=== PATIENT | male | born 1935 | race Caucasian/White ===

== ENCOUNTER 2017-07-24 11:08 | Inpatient (IN) | payer MEDICARE, OTHER ==
[2017-07-24] MEDS ORDERED: Heparin 10,000 UNITS/1 ML VIAL ONE (11:40)
[2017-07-24] MEDS ORDERED: DOPamine 400 MG/D5W 250 ML 250 ML ONE (11:40)
[2017-07-24] MEDS ORDERED: Ondansetron HCl/PF 4 MG/2 ML Vial ONE (11:53)
[2017-07-24] MEDS ORDERED: Verapamil 5 MG/2 ML VIAL ONE (11:58)
[2017-07-24] MEDS ORDERED: Heparin 1000 UNIT/NS 500ML(OR) 500 ML ONE (11:58)
[2017-07-24] MEDS ORDERED: Midazolam HCl 2 mg/2 ml Vial ONE (12:05)
[2017-07-24] MEDS ORDERED: Fentanyl 100 MCG/2 ML VIAL ONE (12:06)
[2017-07-24] MEDS ORDERED: Aggrastat 12.5 MG/250 ML 250 ML ONE (12:11)
[2017-07-24] MEDS ORDERED: Acetaminophen/Codeine 30-300mg Tablet PO PRN (12:19)
[2017-07-24] MEDS ORDERED: Aggrastat 12.5 MG/250 ML 250 ML IVPB SCH (12:30)
[2017-07-24] MEDS ORDERED: Iopamidol 370 76% 100 ML VIAL ONE (13:04)
[2017-07-24] MEDS ORDERED: Iopamidol 370 76% 50 ML VIAL FS ONE (13:04)
--- NOTE | 2017-07-24 14:57 | ADD-PRG ---
ADDENDUM: DATE OF SERVICE: 07/24/2017 Mr. Ho was brought urgently for acute myocardial infarction. The patient was markedly bradycardic with heart rate in the 20s. He was (00:27) in sterile fas hion. Initially I placed a temporary pacemaker. While placing a temporary pacemaker, he went in el tricular fibrillation. He underwent successful cardioversion x1 and placed on IV amiodarone. He also was found to have previous stent placed at the ostium of the right coronary artery which was occluded. He underwent successful stent placement with a 4.0 x 15 mm Synergy stent. This was placed a few millimeters outside of the ostium. There was residual stenosis noted at the ostium due to ___ __ (01:22). A 4.0 x 12 mm balloon was then placed and it was very difficult with placement to the os tium. Multiple times there were inflations with advancement of the balloon on inflation. There was near loss of the wire. After appropriate placement and inflation, there did appear to be appropriate inflation present at the ostium. The patient was hypotensive during the procedure. He began to wre tch and as I was taking out the balloon, there was loss of wire. Had difficulty reengaging due to th e stent being out of the ostium. There was RAVINDER-3 flow present. There was cut off noted in the dist al RPL and PDA likely from thrombus. Patient's blood pressure and heart rate was stable and was amaya sferred to ICU in guarded condition. He was placed on Aggrastat.
[2017-07-24] MEDS: Morphine 4 MG/ML VIAL SLOW IVP PRN (18:12)
[2017-07-24] MEDS: Sodium Chloride 0.9% 1,000 ML IV SCH ×2 (18:50→20:00)
[2017-07-24] MEDS: Amiodarone In Dextrose 200 ML IVPB SCH (18:59)
[2017-07-24] MEDS ORDERED: Nitroglycerin 50 MG/250 ML BOT 250 ML IVPB SCH (21:30)
[2017-07-24] MEDS: Atorvastatin Calcium 40 MG TAB PO SCH (21:32)
[2017-07-25] MEDS: Amiodarone In Dextrose 200 ML IVPB SCH (03:16)
[2017-07-25 04:47] LABS: #Lymphocytes 1.9 thou/uL (1.20-3.40); %Eosinophils 0.2 % (0.0-10.0); %Lymphocytes 15.5 % (21.0-51.0); %Monocytes 8.4 % (0.0-10.0); Hematocrit 28.1 % (42.0-52.0); Mean Platelet Volume 7.7 fL (7.4-10.4); Red Blood Cell (RBC) Count 3.15 mill/uL (4.70-6.10); White Blood Cell (WBC) Count 11.9 thou/uL (4.8-10.8)
[2017-07-25] MEDS: Morphine 4 MG/ML VIAL SLOW IVP PRN ×2 (04:53→10:10)
[2017-07-25 05:05] LABS: ALT (SGPT) 16 U/L (8-55); AST (SGOT) 64 U/L (5-34); Alkaline Phosphatase 47 U/L (40-150); Anion Gap 9 mmol/L (10-20); BUN (Urea Nitrogen) 35 mg/dL (8.4-25.7); Bilirubin, Total 0.3 mg/dL (0.2-1.2); Calc. Creatinine Clearance 107 mL/min (70-130); Calcium 7.8 mg/dL (7.8-10.44); Carbon Dioxide 22 mmol/L (23-31); Chloride 104 mmol/L (98-107); Estimated GFR-MDRD 70; Globulin 2.1 g/dL (2.4-3.5)
[2017-07-25] MEDS: Clopidogrel Bisulfate 75 MG TAB PO SCH (08:35)
[2017-07-25] MEDS: Lisinopril 20 MG TAB PO SCH ×2 (09:09→20:18)
[2017-07-25] MEDS: Ubidecarenone 50 MG CAP PO SCH (09:09)
[2017-07-25] MEDS: Ezetimibe 10 MG TAB PO SCH (09:09)
[2017-07-25 09:44] LABS: Troponin I 16.411 ng/mL (< 0.028)
[2017-07-25] MEDS ORDERED: HYDROcodone/Acetaminophen 5/325 mg Tablet PO PRN (11:30)
[2017-07-25] MEDS ORDERED: Diazepam 5 MG TAB PO PRN (11:30)
--- NOTE | 2017-07-25 11:37 | CON ---
DATE OF CONSULTATION: 07/25/2017 SERVICE: Pulmonary Medicine. REASON FOR CONSULTATION: ICU patient. HISTORY OF PRESENT ILLNESS: Patient is an 82-year-old white male with past medical history significa nt for previous RAW HIDE TRIMMER to the RCA. He started having intermittent discomfort. Ultimately, he presented to the Emergency Department and was discovered to have a pulse in the 20s. EKG was consistent with ST elevation [place]. Ultimately, he was taken down to the laboratory miller. Inclusion of the RCA was identified . A stent was placed. Because of the bradycardia, a transcutaneous pacemaker was placed. After cap ture was obtained, he briefly went into ventricular fibrillation. He was cardioverted and went back into sinus rhythm. Since the stent was placed, he recovered his chipewwa rhythm. The transvenous pace maker was subsequently removed. The sheath has just been removed. He currently denies any fevers, c hills, nausea, vomiting or chest discomfort. PAST MEDICAL HISTORY: 1. Dyslipidemia. 2. Hypertension. 3. Coronary artery disease. 4. Gastroesophageal reflux disease. 5. Peripheral vascular disease. PAST SURGICAL HISTORY: None. SOCIAL HISTORY: Negative for current alcohol, tobacco or illicit drug use. He has no exposure to ch emicals, asbestosis or tuberculosis. FAMILY HISTORY: Noncontributory. ALLERGIES: SULFA. MEDICATIONS: List of his home medications as well inpatient medications was reviewed. No specific u pdates were made at this time. REVIEW OF SYSTEMS: General, head, ears, eyes, nose, throat, cardiovascular, respiratory, GI, , mus culoskeletal, neurologic and skin is negative except as mentioned in the HPI. PHYSICAL EXAMINATION: VITAL SIGNS: Afebrile, pulse 50, blood pressure 136/44, respirations 15, saturation 98% on room air. GENERAL: Patient is awake, alert, in no apparent distress. LUNGS: Excellent air entry. There is no prolonged expiratory phase, wheezing, rhonchi or crackles. HEART: Normal rate, regular. ABDOMEN: Soft, nontender, and nondistended. Bowel sounds are positive. MUSCULOSKELETAL: No cyanosis or clubbing. No pitting in the bilateral lower extremities. NEUROLOGIC: Grossly nonfocal. LABORATORY DATA: WBC 11.9, hemoglobin 9.5, platelets 208,000. Sodium 131. Basic metabolic profile is otherwise unremarkable. Troponin has increased to 16.44. Liver function studies are essentially unremarkable. Creatinine 1.02. AST is barely elevated at 64. ASSESSMENT: 1. ST elevation myocardial infarction. 2. Status post percutaneous coronary intervention to the RCA. 3. Sinus bradycardia. 4. Transient ventricular tachycardia. 5. Coronary artery disease. PLAN: The patient will remain in the ICU for next 24 hours. I will provide him with Dalbo and Ativa n on an as needed basis. Morphine will be discontinued. Pulmonary or Critical Care will continue to follow while the patient remains in the ICU.
[2017-07-25 12:58] LABS: Critical Call CKMBM RESULT DECREASING; Critical Call Chem Troponin I RESULT DECREASING; Troponin I 14.216 ng/mL (< 0.028)
[2017-07-25] MEDS: Nisoldipine 8.5 MG TAB PO SCH (13:44)
[2017-07-25 13:57] VITALS: BMI 20.9
[2017-07-25] MEDS: Atorvastatin Calcium 40 MG TAB PO SCH (20:18)
[2017-07-25] MEDS: Rosuvastatin 10 MG TAB PO SCH (20:18)
[2017-07-26 05:08] LABS: #Eosinphils 0.1 thou/uL (0.0-0.7); #Lymphocytes 1.5 thou/uL (1.20-3.40); #Neutrophils 8.5 thou/uL (1.40-6.50); %Basophils 0.1 % (0.0-1.0); %Eosinophils 0.5 % (0.0-10.0); %Lymphocytes 13.3 % (21.0-51.0); %Monocytes 8.7 % (0.0-10.0); Hematocrit 27.6 % (42.0-52.0); Mean Platelet Volume 7.7 fL (7.4-10.4); Red Blood Cell (RBC) Count 3.12 mill/uL (4.70-6.10); White Blood Cell (WBC) Count 10.9 thou/uL (4.8-10.8)
[2017-07-26 05:13] LABS: Anion Gap 9 mmol/L (10-20); BUN (Urea Nitrogen) 25 mg/dL (8.4-25.7); Calc. Creatinine Clearance 44 mL/min (70-130); Calcium 8.4 mg/dL (7.8-10.44); Carbon Dioxide 23 mmol/L (23-31); Chloride 106 mmol/L (98-107); Estimated GFR-MDRD 63
[2017-07-26] MEDS: Clopidogrel Bisulfate 75 MG TAB PO SCH (07:59)
[2017-07-26] MEDS: Ubidecarenone 50 MG CAP PO SCH (07:59)
[2017-07-26] MEDS: Ezetimibe 10 MG TAB PO SCH (07:59)
[2017-07-26] MEDS: Lisinopril 20 MG TAB PO SCH ×2 (07:59→21:08)
[2017-07-26] MEDS: Nisoldipine 8.5 MG TAB PO SCH (09:29)
--- NOTE | 2017-07-26 11:42 | PRG ---
DATE OF SERVICE: 07/26/2017 SERVICE: Pulmonary Medicine. INTERVAL HISTORY: The patient is doing fine from a respiratory standpoint. He denies any current fe vers, chills, nausea, vomiting or diarrhea. He is breathing comfortably. He got up and walked with physical therapy today. He has been weaned down to room air. He had a little bit of chest discomfor t when he was sitting upright. But when he got up and started moving with physical therapy, that dis comfort went away. Otherwise, there has been no interval change to his condition. PHYSICAL EXAMINATION: VITAL SIGNS: Afebrile, pulse 54, blood pressure 123/49, respirations 22, saturation 98% on room air. GENERAL: The patient is awake, alert, in no apparent distress. LUNGS: Excellent air entry with no prolonged expiratory phase or wheezing. HEART: Normal rate, regular. ABDOMEN: Soft, nontender, nondistended. Bowel sounds are positive. MUSCULOSKELETAL: No cyanosis or clubbing. There is trace pitting in the bilateral lower extremities . NEUROLOGIC: Grossly nonfocal. LABORATORY DATA: WBC 10.9, hemoglobin 9.6, and platelets 188,000. Basic metabolic profile is comple tely unremarkable. Troponin is trending downward to 14.2. IMAGING: Echocardiogram demonstrates normal ejection fraction of 60%-65%. Moderate aortic stenosis, aortic regurgitation, and moderate to severe TR are identified. Otherwise, there are some trivial a bnormalities. ASSESSMENT: 1. ST elevation myocardial infarction. 2. Status post percutaneous coronary intervention to the RCA. 3. Coronary artery disease with needed intervention and additional artery later. 4. Sinus bradycardia. 5. Transient ventricular tachycardia, resolved. PLAN: At this point, the patient remains stable from a respiratory standpoint. He did not have any significant events on telemetry. As such, he can be transitioned to the floor. Epperson catheter will be removed today. When he arrives on the floor, he will have no further requirements for inpatient P ulmonary or Critical Care opinion and we will sign off. Please call with additional questions or con cerns.
[2017-07-26] MEDS: Rosuvastatin 10 MG TAB PO SCH (21:09)
[2017-07-27 06:27] LABS: #Eosinphils 0.2 thou/uL (0.0-0.7); #Lymphocytes 1.6 thou/uL (1.20-3.40); #Monocytes 0.5 thou/uL (0.11-0.59); #Neutrophils 4.7 thou/uL (1.40-6.50); %Basophils 0.1 % (0.0-1.0); %Eosinophils 3.3 % (0.0-10.0); %Lymphocytes 22.5 % (21.0-51.0); %Monocytes 7.6 % (0.0-10.0); Hematocrit 25.8 % (42.0-52.0); Mean Platelet Volume 7.4 fL (7.4-10.4); Red Blood Cell (RBC) Count 2.89 mill/uL (4.70-6.10); White Blood Cell (WBC) Count 7.1 thou/uL (4.8-10.8)
[2017-07-27 06:51] LABS: Anion Gap 11 mmol/L (10-20); BUN (Urea Nitrogen) 19 mg/dL (8.4-25.7); Calc. Creatinine Clearance 45 mL/min (70-130); Calcium 8.5 mg/dL (7.8-10.44); Carbon Dioxide 24 mmol/L (23-31); Chloride 103 mmol/L (98-107); Estimated GFR-MDRD 63; Iron 20 ug/dL (65-175)
[2017-07-27] MEDS: Ezetimibe 10 MG TAB PO SCH (09:08)
[2017-07-27] MEDS: Clopidogrel Bisulfate 75 MG TAB PO SCH (09:08)
[2017-07-27] MEDS: Lisinopril 20 MG TAB PO SCH ×2 (09:09→21:02)
[2017-07-27] MEDS: Ubidecarenone 50 MG CAP PO SCH (09:10)
[2017-07-27] MEDS: Nisoldipine 8.5 MG TAB PO SCH (09:16)
[2017-07-27] MEDS: Milk Of Magnesia 30 ML UDCUP PO PRN (17:12)
[2017-07-27] MEDS ORDERED: Dronedarone HCl 400 MG TAB PO SCH (18:45)
[2017-07-27] MEDS: Enoxaparin Sodium 60 MG/0.6 ML SYRINGE SC SCH (21:02)
[2017-07-27] MEDS: Rosuvastatin 10 MG TAB PO SCH (21:03)
[2017-07-28 06:01] LABS: #Eosinphils 0.3 thou/uL (0.0-0.7); #Lymphocytes 1.6 thou/uL (1.20-3.40); #Monocytes 0.5 thou/uL (0.11-0.59); #Neutrophils 4.2 thou/uL (1.40-6.50); %Basophils 0.5 % (0.0-1.0); %Eosinophils 4.9 % (0.0-10.0); %Lymphocytes 23.5 % (21.0-51.0); %Monocytes 8.2 % (0.0-10.0); Hematocrit 27.2 % (42.0-52.0); Mean Platelet Volume 7.5 fL (7.4-10.4); Red Blood Cell (RBC) Count 3.07 mill/uL (4.70-6.10); White Blood Cell (WBC) Count 6.7 thou/uL (4.8-10.8)
[2017-07-28 06:11] LABS: Anion Gap 11 mmol/L (10-20); BUN (Urea Nitrogen) 18 mg/dL (8.4-25.7); Calc. Creatinine Clearance 40 mL/min (70-130); Calcium 8.2 mg/dL (7.8-10.44); Carbon Dioxide 25 mmol/L (23-31); Chloride 101 mmol/L (98-107); Estimated GFR-MDRD 56
[2017-07-28] MEDS: Ubidecarenone 50 MG CAP PO SCH (08:47)
[2017-07-28] MEDS: Enoxaparin Sodium 60 MG/0.6 ML SYRINGE SC SCH ×2 (08:47→20:09)
[2017-07-28] MEDS: Dronedarone HCl 400 MG TAB PO SCH ×2 (08:47→17:05)
[2017-07-28] MEDS: Ezetimibe 10 MG TAB PO SCH (08:47)
[2017-07-28] MEDS: Lisinopril 20 MG TAB PO SCH ×2 (08:47→20:08)
[2017-07-28] MEDS: Clopidogrel Bisulfate 75 MG TAB PO SCH (08:47)
[2017-07-28] MEDS: Nisoldipine 8.5 MG TAB PO SCH (08:48)
[2017-07-28] MEDS: Milk Of Magnesia 30 ML UDCUP PO PRN (12:48)
[2017-07-28] MEDS ORDERED: Bisacodyl 5 MG TAB PO PRN (13:24)
[2017-07-28] MEDS ORDERED: Communication Order-Pharmacy FS SCH (18:45)
[2017-07-28] MEDS: Rosuvastatin 10 MG TAB PO SCH (20:08)
[2017-07-29 05:32] LABS: Anion Gap 12 mmol/L (10-20); BUN (Urea Nitrogen) 15 mg/dL (8.4-25.7); Calc. Creatinine Clearance 37 mL/min (70-130); Calcium 8.5 mg/dL (7.8-10.44); Carbon Dioxide 24 mmol/L (23-31); Chloride 101 mmol/L (98-107); Estimated GFR-MDRD 50
[2017-07-29 05:55] LABS: Band 1 % (5-11); Hematocrit 27.9 % (42.0-52.0); Mean Platelet Volume 7.7 fL (7.4-10.4); Neutrophil 58 % (42-75); Red Blood Cell (RBC) Count 3.03 mill/uL (4.70-6.10)
[2017-07-29] MEDS: Ezetimibe 10 MG TAB PO SCH (05:58)
[2017-07-29] MEDS: Ubidecarenone 50 MG CAP PO SCH (05:58)
[2017-07-29] MEDS: Clopidogrel Bisulfate 75 MG TAB PO SCH (05:58)
[2017-07-29] MEDS: Lisinopril 20 MG TAB PO SCH ×2 (05:59→21:27)
[2017-07-29] MEDS: Dronedarone HCl 400 MG TAB PO SCH ×2 (05:59→17:50)
[2017-07-29] MEDS ORDERED: Sodium Chloride 0.9% 1,000 ML IV SCH ×2 (06:00→09:08)
[2017-07-29] MEDS: Nisoldipine 8.5 MG TAB PO SCH (06:03)
[2017-07-29] MEDS ORDERED: Heparin 1000 UNIT/NS 500ML(OR) 500 ML ONE ×3 (06:23→07:50)
--- NOTE | 2017-07-29 06:51 | CCL ---
ADDENDUM TO ANGIOGRAM DATE OF SERVICE: 07/24/2017 Mr. Ho was brought urgently for acute myocardial infarction. The patient was markedly bradycardic with heart rate in the 20s. He was prepped and draped in steril e fashion. Initially I placed a temporary pacemaker. While placing a temporary pacemaker, he went i n ventricular fibrillation. He underwent successful cardioversion x1 and placed on IV amiodarone. He also was found to have previous stent placed at the ostium of the right coronary artery which was occluded. He underwent successful stent placement with a 4.0 x 15 mm Synergy stent. This was placed a few millimeters outside of the ostium. There was residual stenosis noted at the ostium due to enma cium. A 4.0 x 12 mm balloon was then placed and it was very difficult with placement to the ostium. Multiple times there were inflations with advancement of the balloon on inflation. There was near l oss of the wire. After appropriate placement and inflation, there did appear to be appropriate infla tion present at the ostium. The patient was hypotensive during the procedure. He began to wretch an d as I was taking out the balloon, there was loss of wire. Had difficulty reengaging due to the sten t being out of the ostium. There was RAVINDER-3 flow present. There was cut off noted in the distal RPL and PDA likely from thrombus. Patient's blood pressure and heart rate was stable and was transferre d to ICU in guarded condition. He was placed on Aggrastat. POS: [facility]
[2017-07-29] MEDS ORDERED: Midazolam HCl 2 mg/2 ml Vial ONE (07:14)
[2017-07-29] MEDS ORDERED: Heparin 10,000 UNITS/1 ML VIAL ONE ×2 (07:14→08:27)
[2017-07-29] MEDS ORDERED: Nitroglycerin 0.4 MG TAB 1 EACH SL PRN (09:06)
[2017-07-29] MEDS ORDERED: Morphine 4 MG/ML Carpuject SLOW IVP PRN (09:06)
[2017-07-29] MEDS ORDERED: Morphine 4 MG/ML VIAL SLOW IVP PRN ×2 (10:07→10:08)
--- NOTE | 2017-07-29 11:49 | CON ---
DATE OF CONSULTATION: 07/29/2017 REASON FOR CONSULTATION: Normocytic anemia. HISTORY OF PRESENT ILLNESS: Mr. Ho is a very pleasant 82-year-old male who was a dmitted through the emergency department for chest discomfort. He was diagnosed with a STEMI and und erwent stent placement. Routine labs on admission showed a normocytic normochromic anemia of 9.5. H is white count and differential were normal. Platelets were normal. He also has mild chronic kidney disease stage 3. The patient states he has no history of anemia. He denies any melena, hematochezi a or hematuria. He states his last colonoscopy was many years ago and he was told that he did not basilio ve to have a repeat colonoscopy. He also has a history esophageal dilation with EGD. Otherwise, a s ignificant coronary history. He denies any shortness of breath, dyspnea on exertion. He does fatigu e easily. PAST MEDICAL HISTORY: 1. Coronary artery disease. 2. Dyslipidemia. 3. Hypertension. 4. Peripheral vascular disease. 5. Gastroesophageal reflux. PAST SURGICAL HISTORY: Coronary artery stent placement. ALLERGIES: SULFA. HOME MEDICATIONS: 1. Ecotrin 325 daily. 2. Zetia 10 mg daily. 3. Fish oil 1000 mg daily. 4. Lisinopril/hydrochlorothiazide daily. 5. Sular 8.5 mg daily. 6. Protonix 40 mg daily. 7. Crestor 10 mg daily. FAMILY HISTORY: Noncontributory. SOCIAL HISTORY: He is , has 3 children, lives with his in [place]. No alcohol, tobacco or illicit drug use. REVIEW OF SYSTEMS: CONSTITUTIONAL: No fever, chills, night sweats, recent weight loss or gain. EYES: No blurred or double vision. ENT: No pain, hoarseness, sore throat, or dysphagia. CARDIOVASCULAR: No chest pain or palpitations. RESPIRATORY: No shortness of breath, dyspnea on exertion or orthopnea. GASTROINTESTINAL: No nausea, vomiting, diarrhea, constipation or abdominal pain. GENITOURINARY: Denies dysuria or hematuria. MUSCULOSKELETAL: Positive for hip pain. SKIN: No rash or pruritus. HEMATOLOGIC: No bleeding, bruising or clotting. NEUROLOGIC: Denies headaches, numbness, tingling, weakness, or seizure activity. PSYCHIATRIC: No anxiety or depression. PHYSICAL EXAMINATION: VITAL SIGNS: Temperature is 98.7, pulse is 70, respiratory rate 18, BP is 137/78. He is 95% on room air. GENERAL: Well-developed, well-nourished male in no acute distress. HEENT: Normocephalic, atraumatic. Pupils equal and reactive to light. CARDIOVASCULAR: Regular rate and rhythm. LUNGS: Clear. ABDOMEN: Soft, nontender. There is no organomegaly palpable. SKIN: No rash. HEMATOLOGICAL: No petechia or purpura. NEUROLOGICAL: Nonfocal. PSYCHIATRIC: The patient is alert, oriented and appropriate. PERTINENT LABORATORY AND X-RAYS: Current WBCs are 7.0, hemoglobin 9.4, hematocrit 27.9, platelet cou nt 216,000, 58% neutrophils, 24% lymphocytes, 4% monocytes. Sodium is 133, potassium 4.1, chloride 1 01, CO2 is 24, BUN is 15, creatinine 1.37, calcium 8.5. Iron is 20, TIBC is 231, total bilirubin 0.3 , AST 64, ALT 16, alkaline phosphatase is 47, CK-MB is 31, troponin is 4216. Serum total protein is 5.0. Albumin 2.9, globulin 2.1. B12 is 197, folate is 10.9. IMPRESSION: 1. Normocytic anemia. 2. B12 deficiency. 3. ST-segment elevation myocardial infarction. 4. Chronic kidney disease, stage 3. DISCUSSION: The patient has obvious B12 deficiency. We will begin subcutaneous injections today and continue for 7 days and then weekly. We will check a ferritin to be complete. I do think he should be on ferrous sulfate 325 mg daily. Would like to guaiac his stool, that can be done in the outpati ent setting. He will follow up with Dr. Crews in August. His who is a former nurse has agre ed to give him injections at home until that time. Thank you for the consult. We will be happy to follow him in the outpatient setting.
[2017-07-29] MEDS ORDERED: Acetaminophen/Codeine 30-300mg Tablet ONE (13:39)
[2017-07-29] MEDS ORDERED: Morphine 4 MG/ML VIAL ONE (15:20)
[2017-07-29] MEDS ORDERED: Iopamidol 370 76% 100 ML VIAL ONE ×2 (17:03)
[2017-07-29] MEDS: Rosuvastatin 10 MG TAB PO SCH (21:29)
[2017-07-30 05:14] LABS: #Eosinphils 0.3 thou/uL (0.0-0.7); #Lymphocytes 1.6 thou/uL (1.20-3.40); #Monocytes 0.7 thou/uL (0.11-0.59); #Neutrophils 3.3 thou/uL (1.40-6.50); %Basophils 0.2 % (0.0-1.0); %Eosinophils 4.9 % (0.0-10.0); %Lymphocytes 26.6 % (21.0-51.0); %Monocytes 12.3 % (0.0-10.0); Mean Platelet Volume 7.1 fL (7.4-10.4); Red Blood Cell (RBC) Count 2.78 mill/uL (4.70-6.10); White Blood Cell (WBC) Count 5.8 thou/uL (4.8-10.8)
[2017-07-30 05:28] LABS: ALT (SGPT) 14 U/L (8-55); AST (SGOT) 23 U/L (5-34); Alkaline Phosphatase 47 U/L (40-150); Anion Gap 10 mmol/L (10-20); BUN (Urea Nitrogen) 13 mg/dL (8.4-25.7); Bilirubin, Total 0.5 mg/dL (0.2-1.2); Calc. Creatinine Clearance 39 mL/min (70-130); Calcium 8.1 mg/dL (7.8-10.44); Carbon Dioxide 21 mmol/L (23-31); Chloride 104 mmol/L (98-107); Estimated GFR-MDRD 54; Globulin 2.3 g/dL (2.4-3.5); Protein, Total 5.2 g/dL (5.8-8.1)
[2017-07-30] MEDS ORDERED: Ferrous Sulfate 325 MG TAB PO SCH (08:00)
[2017-07-30] MEDS: Ubidecarenone 50 MG CAP PO SCH (08:20)
[2017-07-30] MEDS: Lisinopril 20 MG TAB PO SCH (08:20)
[2017-07-30] MEDS: Ezetimibe 10 MG TAB PO SCH (08:20)
[2017-07-30] MEDS: Clopidogrel Bisulfate 75 MG TAB PO SCH (08:20)
[2017-07-30] MEDS ORDERED: Cyanocobalamin 1000 MCG/ML VIAL SC SCH (09:00)
[2017-07-30] MEDS: Dronedarone HCl 400 MG TAB PO SCH (09:40)
[2017-07-30] MEDS: Nisoldipine 8.5 MG TAB PO SCH (09:44)
--- NOTE | 2017-07-30 11:13 | DIS ---
DISCHARGE DIAGNOSES: 1. Inferior ST-segment elevation myocardial infarction with bradycardia and temporary pacemaker placement with peak MB 39.0, peak troponin I of 16.411. 2. 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 3. Drug-eluting stents placement in the right coronary ostium with restenting 4 days later. 4. Drug-eluting stent placement in the circumflex in-stent restenosis. 5. History of drug-eluting stents in the proximal and mid RCA and proximal circumflex initially in 01/2011. 6. Paroxysmal atrial fibrillation during this admission with Multaq started, Xarelto will be started 3 days after discharge with recurrent atrial fibrillation, but in sinus rhythm at the time of discharge. 7. Sick sinus syndrome. 8. Hypercholesterolemia, under good control. 9. Hypertension. 10. Moderate aortic stenosis. 11. Moderate aortic insufficiency. 12. Status post bilateral carotid endarterectomy. 13. Anemia with mild vitamin B12 deficiency being followed by Hematology with discharge hemoglobin of 8.4, hematocrit 25.0. 14. Esophageal dilatation. DISCHARGE DISPOSITION: The patient is being discharged with a 30-day monitor to look for atrial fibrillation. His last episode of atrial fibrillation came on after an episode of junctional bradycardia with rate in the low 50s and then he developed atrial fibrillation. DISCHARGE MEDICATIONS: Aspirin 81 daily, Plavix 75 mg daily, Xarelto 20 mg daily will be started on 08/02/2017, Zetia 10 mg daily, fish oil 1000 mg daily, lisinopril 10 mg b.i.d., Sular 8.5 mg daily, Protonix 40 daily, Crestor 10 mg daily, CoQ10 100 at bedtime. DISCHARGE DISPOSITION: The patient will be seen in 5 weeks for followup. Certainly consideration may need to be given to a pacemaker placed in the future. HOSPITAL COURSE: Mr. Ho had 30 minutes of chest pain on 07/04/2017, . He denied any further episodes of discomfort until 2016. He called 911 and was brought to the emergency room here and found to have changes consistent with inferior STEMI. He was taken to the [facility] by Dr. Alas in my absence. The previous stent in the ostium of the right coronary was occluded. He underwent placement of a Synergy 4.0 x 15 mm stent in this area. He also was extremely bradycardic and had a temporary pacemaker placed which ultimately was removed the following day. 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 He was placed on IV amiodarone for a short period of time, then that was discontinued. It also was noted that his hemoglobin was 9.5 at the time of discharge. The iron and TIBC were both low as well as vitamin B12 being slightly low. He was placed on iron and vitamin B12 and is being followed by Hematology. Mr. Ho was also found to have a significant in-stent restenosis of the circumflex - obtuse marginal stents. It was felt that this should be addressed several days after his infarction. On 07/27/2017 he did go into atrial fibrillation which was a new arrhythmia for him. He has had longstanding significant sinus bradycardia, although he has been asymptomatic. He has not been on any beta blockers for that reason. With his atrial fibrillation he was placed on Lovenox 1 mg/kg b.i.d. He also was started on Multaq and approximately 3 hours after the first dose converted to sinus rhythm. He then underwent repeat catheterization on 07/29/2017. The decision was made to fully evaluate his aortic stenosis and he was found to have a mean gradient of 21 mm with an aortic valve area of 1.1 cm2. Ejection fraction was 55-60%. On aortic root injection he was found to have moderate aortic insufficiency. It was also noted that there was a significant lesion proximal to the stent in the right coronary artery. The decision was made to address this first and with engaging the ostium there was very significant pressure dampening. Proximal to the prior stents, Synergy 4.0 x 12 mm stent was positioned and deployed. This was postdilated with a 4.5 mm balloon. The lesion was reduced from 70 to 0%. Attention was then turned to the in-stent restenosis. In the circumflex there was a proximal 70% stenosis and a 90% stenosis in the first obtuse marginal. Synergy 2.5 x 38 mm stent was placed. There was post-dilatation with Emerge NC 2.5 mm balloon. Both lesions were reduced to essentially 0%. He also had been in atrial fibrillation at the time of his second catheterization having recurred during the night. This did appear to occur after he developed 10 seconds of junctional bradycardia. Later that day he converted back to sinus rhythm. He is being sent home with a 30-day monitor to evaluate the frequency of episodes and to monitor him for significant bradycardia. MTDD
[2017-07-30] MEDS ORDERED: Cyanocobalamin 1000 MCG/ML VIAL IM SCH ×2 (13:00→14:00)
[2017-07-30 14:22] VITALS: BP 118/56; TEMP 98.2
--- NOTE | 2017-07-30 16:23 | CCL ---
CARDIAC CATHETERIZATION REPORT: Date: 07/29/17 PROCEDURE: Left and right heart catheterization, selective arteriography, left ventriculography, aortic root injection, stent placement in the ostial right coronary artery, and stent placement in the proximal circumflex into the first obtuse marginal. INDICATION: Aortic stenosis and STEMI. DESCRIPTION OF PROCEDURE: The patient was brought to the cardiac microbiological lab technician and the right groin was prepped and draped in the usual fashion. 1% lidocaine was infiltrated. A 7 Egyptian sheath was placed into the right femoral vein, followed by a 6 Egyptian sheath in the right femoral artery. Heparin 3,000 units given. A Westfield-Subhash catheter was inserted and right heart pressures were obtained. A double lumen pigtail was inserted and pressures were obtained from both lumens with good tracking of the pressure waveform. Using a straight wire, just in the catheter and not extending out of the catheter, the pigtail was able to be advanced into the left ventricle. Simultaneous left ventricular and aortic root pressures were obtained. Thermodilution cardiac output was then performed. Westfield-Subhash catheter was then removed. Left ventriculogram was performed using 30 mL of contrast at 12 mL/second in a GARCIA 30 degree projection. The pigtail was pulled back into the aorta and aortic root injection was performed using 30 mL of contrast at 15 mL/second in SHEILA 60 degree projection. It was noted that the ostium of the right coronary artery, proximal to the stents placed 5 days previously, was approximately 70% narrowed. Decision was made to evaluate this further before proceeding to stenting of the circumflex. A 6 Egyptian Chandler right-4 guide catheter was inserted and there was severe pressure dampening with insertion into the right coronary ostium to pressures of 20-30 mm systolic. The right-4 was removed and a 6 Egyptian right-4 guide with side holes was inserted. A floppy Choice wire was advanced in the distal right coronary artery. Synergy 4.0 x 12 mm stent was then positioned in the ostium and deployed. There continued to be narrowing in this area and the decision was made to postdilate with an Emerge NC 4.5 mm balloon. The guide catheter and wire were then removed. A 6 Egyptian Chandler left-4 guide catheter was inserted and an extra support wire was advanced into the distal first obtuse marginal. The areas were predilated with Emerge 2.5 x 20 mm balloon. This was removed and Synergy 2.5 x 38 mm stent was then positioned, covering both lesions and deployed. There continued to be narrowing in the more proximal area and this was postdilated with Emerge NC 2.5 x 12 mm balloon. The sheaths were sutured in place. During the procedure, the patient received Versed 1 mg at the beginning of the procedure and during the case, he received heparin 3,000, 5,000, 3,000, and another 2,000 to maintain ACT greater than 300. The patient was transferred to the PCU in stable condition. RESULTS: PRESSURES: Right Atrium 1/2, mean of 1 Right Ventricle 22/0 Pulmonary Artery 19/5, mean of 12 Pulmonary Capillary Wedge 7/7, mean of 5 Left Ventricle 118/3 Aorta 105/43, mean of 68 HEMODYNAMICS: Cardiac Output 4.26 liters/minute Cardiac Index 2.8 liters/minute/M2 Systemic Vascular Resistance 1,521 Pulmonary Vascular Resistance 130 AORTIC VALVE: Mean LV-Aortic Gradient 21 mm Aortic Valve Area 1.1 cm2 LEFT VENTRICULOGRAM: Normal left ventricular contractility with ejection fraction of 55-60%. AORTIC ROOT INJECTION: There was moderate aortic insufficiency. The ostial right coronary artery had a 70% lesion. CORONARY ARTERIOGRAPHY: 1. The left main was normal. 2. The LAD had a 40% mid stenosis. 3. The circumflex had a 70% proximal in-stent restenosis and a 90% first obtuse marginal in-stent restenosis. 4. The right coronary artery had a 70% ostial lesion proximal to the other stents. INTERVENTION RESULTS: 1. The ostial right coronary artery was reduced from 70% to 0%. 2. The proximal circumflex was reduced from 70% to 0%. 3. The first obtuse marginal was reduced from 90% to 0%. IMPRESSION: 1. Three vessel coronary artery disease. 2. Moderate aortic stenosis. 3. Moderate aortic insufficiency. 4. Normal left ventricular function. 5. Successful stent placement in ostial right coronary artery and in the circumflex-obtuse marginal. [facility]
--- NOTE | 2017-07-30 16:40 | EKG ---
Test Reason : Blood Pressure : / mmHG Vent. Rate : 054 BPM Atrial Rate : 054 BPM P-R Int : 158 ms QRS Dur : 088 ms QT Int : 486 ms P-R-T Axes : 033 -08 024 degrees QTc Int : 460 ms Sinus bradycardia Nonspecific ST abnormalty Abnormal ECG Confirmed by MIKE MACHUCA ([id number]) on 07/30/2017 4:39:35 PM Referred By: ALESSANDRO Confirmed By:MIKE MACHUCA
--- NOTE | 2017-08-10 13:24 | EKG ---
Test Reason : POSTSTENT Blood Pressure : / mmHG Vent. Rate : 050 BPM Atrial Rate : 052 BPM P-R Int : 000 ms QRS Dur : 194 ms QT Int : 594 ms P-R-T Axes : 000 -66 088 degrees QTc Int : 541 ms Electronic ventricular pacemaker When compared with ECG of 05-NOV-2011 07:09, Electronic ventricular pacemaker has replaced Sinus rhythm Confirmed by JAYJAY RIOS MD ([id number]) on 08/10/2017 1:24:21 PM Referred By: BLANCA Confirmed By:JAYJAY RIOS MD
--- NOTE | 2017-08-10 13:25 | EKG ---
Test Reason : Blood Pressure : / mmHG Vent. Rate : 050 BPM Atrial Rate : 050 BPM P-R Int : 172 ms QRS Dur : 076 ms QT Int : 408 ms P-R-T Axes : 068 -12 -30 degrees QTc Int : 371 ms Sinus bradycardia Nonspecific ST and T wave abnormality Abnormal ECG When compared with ECG of 25-JUL-2017 06:45, (Unconfirmed) Sinus rhythm has replaced Electronic ventricular pacemaker Confirmed by JAYJAY RIOS MD ([id number]) on 08/10/2017 1:25:19 PM Referred By: BLANCA Confirmed By:JAYJAY RIOS MD
--- NOTE | 2017-08-10 13:25 | EKG ---
Test Reason : Blood Pressure : / mmHG Vent. Rate : 050 BPM Atrial Rate : 055 BPM P-R Int : 000 ms QRS Dur : 168 ms QT Int : 602 ms P-R-T Axes : 000 -50 089 degrees QTc Int : 548 ms Electronic ventricular pacemaker When compared with ECG of 24-JUL-2017 13:29, (Unconfirmed) No significant change was found Confirmed by JAYJAY RIOS MD ([id number]) on 08/10/2017 1:25:17 PM Referred By: BLANCA Confirmed By:JAYJAY RIOS MD
[2017-08-12] MEDS ORDERED: Cyanocobalamin 1000 MCG/ML VIAL SC SCH (09:00)
== END 2017-07-30 14:46 | disposition home or self-care (01) | DRG 246 ==
LOC: SDC 11:08 → CCU 13:55 → 2NO 07-26 14:38
PROVIDERS: ADMIT Internal Medicine Cardiovascular Disease; ATTEND Internal Medicine Cardiovascular Disease
PROC: 5A1213Z Performance of Cardiac Pacing, Intermittent (ICD-10-PCS; 2017-07-24)
PROC: 027034Z Dilation of Coronary Artery, One Artery with Drug-eluting Intraluminal Device, Percutaneous Approach (ICD-10-PCS; 2017-07-24)
PROC: 5A2204Z Restoration of Cardiac Rhythm, Single (ICD-10-PCS; 2017-07-24)
PROC: 027135Z Dilation of Coronary Artery, Two Arteries with Two Drug-eluting Intraluminal Devices, Percutaneous Approach (ICD-10-PCS; principal; 2017-07-29)
PROC: 4A023N8 Measurement of Cardiac Sampling and Pressure, Bilateral, Percutaneous Approach (ICD-10-PCS; 2017-07-29)
PROC: B3101ZZ Fluoroscopy of Thoracic Aorta using Low Osmolar Contrast (ICD-10-PCS; 2017-07-29)
PROC: B2111ZZ Fluoroscopy of Multiple Coronary Arteries using Low Osmolar Contrast (ICD-10-PCS; 2017-07-29)
PROC: B2151ZZ Fluoroscopy of Left Heart using Low Osmolar Contrast (ICD-10-PCS; 2017-07-29)
DX: I49.5 Sick sinus syndrome (principal); I21.19 ST elevation (STEMI) myocardial infarction involving other coronary artery of inferior wall; D51.9 Vitamin B12 deficiency anemia, unspecified; I35.2 Nonrheumatic aortic (valve) stenosis with insufficiency; I48.0 Paroxysmal atrial fibrillation; E78.00 Pure hypercholesterolemia, unspecified; K22.8 Other specified diseases of esophagus; K21.9 Gastro-esophageal reflux disease without esophagitis; I73.9 Peripheral vascular disease, unspecified; I12.9 Hypertensive chronic kidney disease with stage 1 through stage 4 chronic kidney disease, or unspecified chronic kidney disease; N18.3 Chronic kidney disease, stage 3 (moderate); I25.10 Atherosclerotic heart disease of native coronary artery without angina pectoris
CPT/HCPCS: 36415; 76942; 80048; 80053; 82553; 82607; 82728; 82746; 83540; 83550; 84484; 85025; 85347; 92928; 92929; 92953; 93005; 93010; 93306; 93454; 93460; 93561; 93567; 93798; 99152; 99153; A4216; C1725; C1769; C1874; C1887; C9600; C9601; J0282; J1265; J1644; J1650; J2250; J2270; J2405; J3010; J3246; J3420

== ENCOUNTER 2017-08-26 06:01 | Inpatient (IN) | payer MEDICARE, OTHER ==
[2017-08-26] MEDS ORDERED: CEFAZOLIN 1 GM VIAL ONE (06:44)
[2017-08-26] MEDS ORDERED: CEFAZOLIN/Water 2 GM/20 ML SYRINGE ONE (06:44)
[2017-08-26] MEDS ORDERED: Gentamicin 80 MG/2 ML VIAL ONE (06:44)
[2017-08-26] MEDS ORDERED: Midazolam HCl 2 mg/2 ml Vial ONE (07:07)
[2017-08-26] MEDS ORDERED: Fentanyl 100 MCG/2 ML VIAL ONE (07:08)
[2017-08-26] MEDS ORDERED: Lidocaine 1% (PF) 30 ML VIAL ONE ×2 (07:16→07:27)
--- NOTE | 2017-08-26 08:45 | CCL ---
CARDIOLOGY PROCEDURE NOTE: Date: 08/26/17 PROCEDURE: Permanent pacemaker placement. 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 DETAILS: The patient was brought to the cardiac labor relations officer and the left subclavian area was prepped and draped. 1% lidocaine was infiltrated. The patient was given Versed 1 mg and fentanyl 25 mg for IV sedation. Versed was repeated later in the case. A J-wire was placed into the left subclavian vein. Pacemaker pocket was manufactured using blunt and sharp dissection with electrocautery for hemostasis. An antibiotic solution-soaked gauze was placed into the subcutaneous pocket. A second J-wire was then placed into the left subclavian vein. Using 7 [place] peel-away sheaths, the atrial and ventricular leads were inserted. The right ventricular lead was advanced to the right ventricular apex and was screwed in place. The right atrial lead was screwed in place. Right ventricular lead: R-wave 8.4, impedance 712, threshold 0.3 volts. Right atrial lead: P-wave 2.2, impedance 539, threshold 0.5 volts. The tabs on the suture tie-downs were removed and both leads were secured in place with 2 sutures each of 0 silk. The antibiotic solution-soaked gauze was then removed and the pocket was irrigated with copious amounts of antibiotic solution. The leads were attached to the pacemaker generator and this was placed into the pocket and secured in place with 1 suture of 0 silk. The skin was then closed using 2 layers of running 3-0 Vicryl and 1 layer running 4-0 Vicryl. Dermabond was placed on the incision. The patient tolerated the procedure well. JUDY
[2017-08-26] MEDS ORDERED: Cyanocobalamin 1000 MCG/ML VIAL SC SCH (09:00)
[2017-08-26 09:15] LABS: #Eosinphils 0.2 thou/uL (0.0-0.7); #Lymphocytes 0.9 thou/uL (1.20-3.40); #Monocytes 0.4 thou/uL (0.11-0.59); #Neutrophils 4.7 thou/uL (1.40-6.50); %Basophils 0.3 % (0.0-1.0); %Eosinophils 2.6 % (0.0-10.0); %Lymphocytes 14.8 % (21.0-51.0); %Neutrophils 75.3 % (42.0-75.0); Hemoglobin 8.5 g/dL (14.0-18.0); Mean Corpuscular HGB CONC 33.1 g/dL (32.0-36.0); Mean Corpuscular Volume 90.6 fl (80.0-94.0); Mean Platelet Volume 7.1 fL (7.4-10.4); Platelet Count 222 thou/uL (130-400); RBC Distribution Width 13.2 % (11.5-14.5); Red Blood Cell (RBC) Count 2.85 mill/uL (4.70-6.10); White Blood Cell (WBC) Count 6.2 thou/uL (4.8-10.8)
--- NOTE | 2017-08-26 09:31 | RAD ---
SINGLE VIEW OF THE CHEST: COMPARISON: None. HISTORY: Cardiac device placement. FINDINGS: A single view of the chest shows a cardiomediastinal silhouette which is upper limits of normal in si ze. There is a left pacemaker with its leads in the right atrium and ventricle. No pneumothorax is seen. There is no evidence of consolidation, mass, or pleural effusion. IMPRESSION: No evidence of acute cardiopulmonary disease. POS: [facility]
[2017-08-26] MEDS: Cephalexin 250 MG CAP PO SCH ×3 (11:26→20:37)
[2017-08-26] MEDS: Clopidogrel Bisulfate 75 MG TAB PO SCH (11:27)
[2017-08-26] MEDS: Ubidecarenone 50 MG CAP PO SCH (11:28)
[2017-08-26] MEDS: Metoprolol Tartrate 50 MG TAB PO SCH ×2 (11:28→20:37)
[2017-08-26] MEDS: Nisoldipine 8.5 MG TAB PO SCH (11:28)
[2017-08-26] MEDS: Ezetimibe 10 MG TAB PO SCH (11:28)
[2017-08-26] MEDS ORDERED: Sodium Chloride 0.9% 1,000 ML IV SCH (11:45)
[2017-08-26] MEDS: Sodium Chloride 0.9% 1,000 ML IV SCH ×2 (11:52→16:07)
[2017-08-26 16:47] VITALS: BMI 20.9
[2017-08-26] MEDS: Dronedarone HCl 400 MG TAB PO SCH (17:35)
--- NOTE | 2017-08-26 17:48 | EKG ---
Test Reason : PREOP PACEMAKER INS Blood Pressure : / mmHG Vent. Rate : 050 BPM Atrial Rate : 050 BPM P-R Int : 170 ms QRS Dur : 078 ms QT Int : 492 ms P-R-T Axes : 055 010 005 degrees QTc Int : 448 ms Sinus bradycardia Otherwise normal ECG When compared with ECG of 30-JUL-2017 07:41, No significant change was found Confirmed by SAGE RAMIREZ, DR. Stover ([id number]) on 08/26/2017 5:47:46 PM Referred By: ALESSANDRO Confirmed By:DR. Jolanta CAZARES MD
[2017-08-26] MEDS ORDERED: Acetaminophen 325 MG TAB PO PRN (20:02)
[2017-08-26] MEDS ORDERED: Acetaminophen/Codeine 30-300mg Tablet PO PRN (20:04)
[2017-08-26] MEDS: Rosuvastatin 10 MG TAB PO SCH (20:37)
[2017-08-27] MEDS: Metoprolol Tartrate 50 MG TAB PO SCH ×2 (04:37→20:40)
[2017-08-27 05:41] LABS: Anion Gap 12 mmol/L (10-20); BUN (Urea Nitrogen) 15 mg/dL (8.4-25.7); Calc. Creatinine Clearance 35 mL/min (70-130); Calcium 8.5 mg/dL (7.8-10.44); Carbon Dioxide 22 mmol/L (23-31); Chloride 107 mmol/L (98-107); Estimated GFR-MDRD 50; Glucose 76 mg/dL (83-110); Potassium 4.7 mmol/L (3.5-5.1); Sodium 136 mmol/L (136-145)
[2017-08-27] MEDS ORDERED: cloNIDine 0.1 MG TAB PO SCH (08:15)
[2017-08-27] MEDS: Ezetimibe 10 MG TAB PO SCH (08:33)
[2017-08-27] MEDS: Cephalexin 250 MG CAP PO SCH ×3 (08:33→20:40)
[2017-08-27] MEDS: Dronedarone HCl 400 MG TAB PO SCH ×2 (08:34→17:23)
[2017-08-27] MEDS: Clopidogrel Bisulfate 75 MG TAB PO SCH (08:35)
[2017-08-27] MEDS: Ferrous Sulfate 325 MG TAB PO SCH (08:36)
[2017-08-27] MEDS: Ubidecarenone 50 MG CAP PO SCH (08:37)
[2017-08-27] MEDS: Sodium Chloride 0.9% 1,000 ML IV SCH (08:40)
[2017-08-27] MEDS ORDERED: cloNIDine 0.1 MG TAB PO PRN (08:49)
[2017-08-27] MEDS: Nisoldipine 8.5 MG TAB PO SCH (11:41)
[2017-08-27] MEDS ORDERED: Lisinopril 10 MG TAB PO SCH (11:45)
[2017-08-27] MEDS: Rosuvastatin 10 MG TAB PO SCH (20:40)
[2017-08-28] MEDS: Sodium Chloride 0.9% 1,000 ML IV SCH (01:03)
[2017-08-28 05:26] LABS: Anion Gap 10 mmol/L (10-20); BUN (Urea Nitrogen) 16 mg/dL (8.4-25.7); Calc. Creatinine Clearance 36 mL/min (70-130); Calcium 8.1 mg/dL (7.8-10.44); Carbon Dioxide 21 mmol/L (23-31); Chloride 106 mmol/L (98-107); Estimated GFR-MDRD 51; Glucose 74 mg/dL (83-110); Potassium 4.4 mmol/L (3.5-5.1); Sodium 133 mmol/L (136-145)
[2017-08-28] MEDS: Ezetimibe 10 MG TAB PO SCH (08:34)
[2017-08-28] MEDS: Ubidecarenone 50 MG CAP PO SCH (08:34)
[2017-08-28] MEDS: Dronedarone HCl 400 MG TAB PO SCH (08:34)
[2017-08-28] MEDS: Cephalexin 250 MG CAP PO SCH (08:34)
[2017-08-28] MEDS: Ferrous Sulfate 325 MG TAB PO SCH (08:35)
[2017-08-28] MEDS: Clopidogrel Bisulfate 75 MG TAB PO SCH (08:36)
[2017-08-28] MEDS: Nisoldipine 8.5 MG TAB PO SCH (08:36)
[2017-08-28] MEDS: Metoprolol Tartrate 50 MG TAB PO SCH (08:37)
[2017-08-28 08:45] VITALS: BP 165/87; TEMP 97.6
[2017-08-28] MEDS ORDERED: Lisinopril 5 MG TAB PO SCH (09:00)
--- NOTE | 2017-08-28 14:26 | DIS ---
DISCHARGE DIAGNOSES: 1. Pacemaker placement on this admission. 2. Sick sinus syndrome with episodes of atrial fibrillation requiring medical therapy and severe sinus bradycardia for years with heart rates in the low 40s and type 2 second degree atrioventricular block on outpatient monitoring. 3. Status post inferior ST-segment elevation myocardial infarction in 07/2017 with bradycardia and temporary pacemaker placement with peak MB 39.0, peak troponin I of 16.411. 4. Ventricular fibrillation in 07/2017 with cardioversion in the [place] [employer] at the time of myocardial infarction. 5. Drug-eluting stents placed in the right coronary ostium with restenting 4 days later in July 2017 as well as placement of a stent in circumflex in- stent restenosis. 6. History of drug-eluting stent placement in the proximal and mid right coronary artery and proximal circumflex initially in 01/2011. 7. Paroxysmal atrial fibrillation with Multaq started in 07/2017. 8. Hypercholesterolemia, under good control with LDL of 44, last blood testing in 06/2017. 9. Hypertension. 10. Moderate aortic stenosis at catheterization. 11. Moderate aortic insufficiency at catheterization. 12. Status post bilateral carotid endarterectomy. 13. Anemia with mild vitamin B12 deficiency followed by Hematology, hemoglobin 8.4 in July at discharge and 8.5 at this time. 14. History of esophageal dilatation. 15. Acute kidney injury with creatinine 2.1 at the time of admission and 1.33 at the time of discharge after IV hydration and reduction of lisinopril dose. DISCHARGE DISPOSITION: The patient will have a site check in 1 week and will be seen in 2 weeks for followup with CBC and basic metabolic profile being obtained. DISCHARGE MEDICATIONS: Aspirin 81 mg daily, Plavix 75 mg daily, Keflex 250 t.i.d. x4 more days, clonidine 0.1 mg q.6h. p.r.n. CoQ10 100 mg daily, vitamin B12 q. [place] eventually change into every month, Multaq 400 mg b.i.d., Zetia 10 mg daily, ferrous sulfate 325 q.a.m., lisinopril 5 mg daily, metoprolol 50 mg b.i.d., Sular 8.5 mg daily, Protonix 40 daily, Crestor 10 mg daily. He also will resume Xarelto 20 mg daily on 09/01/2017. HOSPITAL COURSE: Mr. Ho was sent home with a 30-day monitor after his myocardail infarction due to bradycardia and atrial fibrillation. This showed episodes of type 2 second degree AV block. Also, when he was previously hospitalized, he had junctional bradycardia which then resulted in going into atrial fibrillation. He has alongstanding history of very severe sinus bradycardia that has been watched for several years. The decision was made to put a permanent pacemaker. He came in and that was placed without incident. It was noted that he had a creatinine of 2.10 that had been normal previously. He was on lisinopril 10 b.i.d. and that was stopped and he was given intravenous fluids. His creatinine dropped to 1.33 at the time of discharge. He was placed back on lisinopril 5 mg daily for better blood pressure control after metoprolol 50 b.i.d., did not seem to control his blood pressure. He will continue to monitor this at home and use clonidine on a p.r.n. basis. [facility]ID HOSPITALZander
--- NOTE | 2017-08-29 00:46 | EKG ---
Test Reason : Blood Pressure : / mmHG Vent. Rate : 061 BPM Atrial Rate : 061 BPM P-R Int : 164 ms QRS Dur : 076 ms QT Int : 444 ms P-R-T Axes : -29 -16 -34 degrees QTc Int : 446 ms Electronic atrial pacemaker When compared with ECG of 26-AUG-2017 06:43, Electronic atrial pacemaker has replaced Sinus rhythm Confirmed by SAGE RAMIREZ, DR. Stover (4) on 08/29/2017 12:46:20 AM Referred By: ALESSANDRO Confirmed By:DR. Jolanta CAZARES MD
== END 2017-08-28 13:07 | disposition home or self-care (01) | DRG 243 ==
LOC: CCL 06:01 → 2NO 08:18
PROVIDERS: ADMIT Internal Medicine Cardiovascular Disease; ATTEND Internal Medicine Cardiovascular Disease
PROC: 0JH606Z Insertion of Pacemaker, Dual Chamber into Chest Subcutaneous Tissue and Fascia, Open Approach (ICD-10-PCS; principal; 2017-08-26)
PROC: 02H63JZ Insertion of Pacemaker Lead into Right Atrium, Percutaneous Approach (ICD-10-PCS; 2017-08-26)
PROC: 02HK3JZ Insertion of Pacemaker Lead into Right Ventricle, Percutaneous Approach (ICD-10-PCS; 2017-08-26)
DX: I44.1 Atrioventricular block, second degree (principal); N17.9 Acute kidney failure, unspecified; I35.2 Nonrheumatic aortic (valve) stenosis with insufficiency; I48.0 Paroxysmal atrial fibrillation; D51.9 Vitamin B12 deficiency anemia, unspecified; I49.5 Sick sinus syndrome; R00.1 Bradycardia, unspecified; E78.00 Pure hypercholesterolemia, unspecified; Z95.5 Presence of coronary angioplasty implant and graft; I10 Essential (primary) hypertension; I25.10 Atherosclerotic heart disease of native coronary artery without angina pectoris; I25.2 Old myocardial infarction
CPT/HCPCS: 33208; 36415; 71045; 80048; 85025; 93005; 93010; 93798; 99152; 99153; A4216; C1785; C1898; J0690; J1580; J1644; J2001; J2250; J3010

== ENCOUNTER 2017-09-10 | Inpatient (IN) | payer MEDICARE, OTHER ==
[2017-09-10 01:51] LABS: #Eosinphils 0.4 thou/uL (0.0-0.7); #Lymphocytes 2.1 thou/uL (1.20-3.40); #Monocytes 0.6 thou/uL (0.11-0.59); #Neutrophils 4.6 thou/uL (1.40-6.50); %Basophils 0.4 % (0.0-1.0); %Eosinophils 4.5 % (0.0-10.0); %Lymphocytes 27.6 % (21.0-51.0); %Monocytes 8.1 % (0.0-10.0); %Neutrophils 59.4 % (42.0-75.0); Hemoglobin 8.7 g/dL (14.0-18.0); Mean Corpuscular HGB CONC 34.4 g/dL (32.0-36.0); Mean Corpuscular Hemoglobin 30.3 pg (27.0-31.0); Mean Corpuscular Volume 88.1 fl (80.0-94.0); Mean Platelet Volume 6.8 fL (7.4-10.4); Platelet Count 281 thou/uL (130-400); RBC Distribution Width 12.9 % (11.5-14.5); Red Blood Cell (RBC) Count 2.88 mill/uL (4.70-6.10); White Blood Cell (WBC) Count 7.8 thou/uL (4.8-10.8)
[2017-09-10 01:58] LABS: INR-International Normal Ratio 1.5; PTT 30.3 SEC (22.9-36.1); Prothrombin Time 18.8 SEC (12.0-14.7)
[2017-09-10 02:14] LABS: ALT (SGPT) 17 U/L (8-55); AST (SGOT) 25 U/L (5-34); Albumin 3.4 g/dL (3.4-4.8); Alkaline Phosphatase 48 U/L (40-150); Anion Gap 10 mmol/L (10-20); BUN (Urea Nitrogen) 27 mg/dL (8.4-25.7); Bilirubin, Total 0.3 mg/dL (0.2-1.2); Calc. Creatinine Clearance 0 mL/min (70-130); Calcium 8.4 mg/dL (7.8-10.44); Carbon Dioxide 25 mmol/L (23-31); Chloride 106 mmol/L (98-107); Estimated GFR-MDRD 46; Globulin 2.3 g/dL (2.4-3.5); Glucose 91 mg/dL (83-110); Potassium 4.8 mmol/L (3.5-5.1); Protein, Total 5.7 g/dL (5.8-8.1); Sodium 136 mmol/L (136-145)
[2017-09-10] MEDS ORDERED: Acetaminophen 325 MG TAB PO PRN ×2 (06:07→08:25)
[2017-09-10] MEDS ORDERED: Ondansetron HCl/PF 4 MG/2 ML Vial IVP PRN ×2 (06:07→08:25)
[2017-09-10] MEDS ORDERED: Ondansetron ODT 4 MG TAB SL PRN (06:07)
[2017-09-10] MEDS ORDERED: Mag-Al 1200 mg/1200 mg/30 ML UDCUP PO PRN (08:25)
[2017-09-10] MEDS ORDERED: Milk Of Magnesia 30 ML UDCUP PO PRN (08:25)
[2017-09-10] MEDS ORDERED: Labetalol HCl 100 MG/20 ML VIAL SLOW IVP PRN (08:25)
[2017-09-10] MEDS ORDERED: HYDROcodone/Acetaminophen 5/325 mg Tablet PO PRN (08:25)
[2017-09-10] MEDS ORDERED: Diabetic Tussin 200 MG/10 ML UDCUP PO PRN (08:25)
[2017-09-10] MEDS ORDERED: Loperamide HCl 2 MG CAP PO PRN (08:25)
[2017-09-10] MEDS ORDERED: Nitroglycerin 0.4 MG TAB (25 Tab Bottle) SL PRN (08:25)
[2017-09-10] MEDS ORDERED: Artificial Tears 18 DROP/0.9 ML EA EYE PRN (08:25)
[2017-09-10] MEDS ORDERED: cloNIDine 0.1 MG TAB PO PRN (08:25)
[2017-09-10] MEDS ORDERED: Ondansetron ODT 4 MG TAB PO PRN (08:25)
[2017-09-10] MEDS ORDERED: hydrALAZINE 20 MG/ML VIAL SLOW IVP PRN (08:25)
[2017-09-10] MEDS ORDERED: Eucerin (Mineral Oil/Petrolatum,White) 30 gm Jar TOP PRN (08:25)
[2017-09-10] MEDS ORDERED: Senokot 8.6 MG TAB PO PRN (08:25)
[2017-09-10] MEDS ORDERED: Zolpidem Tartrate 5 MG TAB PO PRN (08:25)
[2017-09-10] MEDS ORDERED: Sodium Chloride 0.65% Nasal 44 ML BOT EA NARE PRN (08:25)
[2017-09-10] MEDS ORDERED: Chloraseptic Spray 180 ml Bottle PO PRN (08:25)
[2017-09-10] MEDS ORDERED: Loratadine 10 MG TAB PO PRN (08:25)
[2017-09-10 10:50] VITALS: BMI 21.3
[2017-09-10] MEDS: Sodium Chloride 0.9% 1,000 ML IV SCH (12:10)
[2017-09-10] MEDS: Ubidecarenone 50 MG CAP PO SCH (12:11)
[2017-09-10] MEDS: Ezetimibe 10 MG TAB PO SCH (12:11)
[2017-09-10] MEDS: Lisinopril 5 MG TAB PO SCH (12:11)
[2017-09-10] MEDS: Nisoldipine 8.5 MG TAB PO SCH (12:12)
[2017-09-10] MEDS: Pantoprazole 40 MG VIAL IVP SCH (12:13)
[2017-09-10 12:16] LABS: Hemoglobin 8.4 g/dL (14.0-18.0)
[2017-09-10] MEDS ORDERED: Clopidogrel Bisulfate 75 MG TAB PO SCH (13:00)
--- NOTE | 2017-09-10 13:04 | CON ---
DATE OF CONSULTATION: 09/10/2017 HISTORY OF PRESENT ILLNESS: This patient is a 82-year-old gentleman who presents with a GI hemorrhage. The patient has a long history of coronary artery disease. He was seen in 07/23/2017 with an acute NC. He subsequently underwent PTCA and stent placement in the right coronary artery. He has subsequently underwent PTCA and stent placement to the left circumflex artery. The patient also few weeks later had placement of electronic pacemaker. He has a history of paroxysmal atrial fibrillation and has been maintained on chronic anticoagulation therapy. The patient noted approximately 5 days ago he started having bleeding,with bright red blood per rectum. This occurred for several days and he eventually sought medical attention. The patient denied having any chest discomfort. He denies having any dyspnea. He reports feeling extremely weak. PAST MEDICAL HISTORY: 1. Coronary artery disease. 2. Paroxysmal atrial fibrillation. 3. Hypertension. 4. Cerebrovascular disease. 5. Aortic stenosis. 6. Anemia. 7. Hypertension. 8. Renal insufficiency. PAST SURGICAL HISTORY: Tonsillectomy and bilateral carotid endarterectomy. SOCIAL HISTORY: Nonsmoker. FAMILY HISTORY: No strong family history of heart disease. ALLERGIES: SULFA DRUGS. MEDICATIONS ON ADMISSION: Protonix 40 daily, Xarelto 20 at bedtime, Crestor 10 at bedtime, metoprolol 50 p.o. b.i.d., Plavix 75 daily, Keflex 25 t.i.d., lisinopril 5 mg daily, Sular 8.5 daily, Xarelto 20 daily, and Multaq 400 mg p.o. b.i.d. REVIEW OF SYSTEMS: Ten point system otherwise unremarkable. PHYSICAL EXAMINATION: GENERAL: A middle-aged gentleman in no acute distress. VITAL SIGNS: Blood pressure 159/70. NECK: No jugular venous distention. LUNGS: Clear to auscultation. HEART: Regular rate and rhythm, normal S1, S2, 2/6 systolic murmur. ABDOMEN: Nondistended. EXTREMITIES: Showed no edema. SKIN: Warm and dry. NEUROLOGIC: Nonfocal. VASCULAR: Radial pulses are 2+. LABORATORY DATA AND IMAGING DATA: White blood count 7.8, hemoglobin 8.7, hematocrit 25.4, and platelets 281. Sodium was 136, potassium 4.8, chloride 106 , bicarbonate 25, BUN 27, creatinine is 1.47. His EKG revealed him to have an atrial paced rhythm with no acute ST-T wave changes. IMPRESSION AND PLAN: 1. Gastrointestinal hemorrhage. 2. History of percutaneous transluminal coronary angioplasty and stent placement to the right coronary artery and left circumflex artery in 07/2017. 3. History of pacemaker placement. 4. History of paroxysmal atrial fibrillation. 5. Moderate aortic stenosis. 6. Renal insufficiency. 7. Cerebrovascular disease. 8. Hypertension. This gentleman presents with a gastrointestinal hemorrhage. He has had recent drug-coated stents. The patient did have a significant bleed and has required a transfusion. Would recommend the patient take aspirin 81 mg. Would also like him to take Plavix if it is deemed reasonably appropriate for Gastroenterology. Would hold the patient's Xarelto. We will follow this patient with you through his hospitalization. JUDY
--- NOTE | 2017-09-10 16:08 | HP ---
PRIMARY CARE PHYSICIAN: Dr. Jillian Galvin in [place]. REASON FOR ADMISSION: Acute lower gastrointestinal bleed, anemia due to acute blood loss. HISTORY OF PRESENT ILLNESS: An 82-year-old male who was recently admitted in our hospital on 07/24/2017. At that time, the patient had acute KS and the patient underwent drug-eluting stent with PTCA. The patient had echocardiography which showed normal EF. The patient was discharged home and subsequently he was readmitted on 08/27/2017. During that admission, pacemaker was placed for sick sinus syndrome. When patient was admitted in July, at that time, patient also had ventricular fibrillation, required cardioversion in the medical laboratory scientist. At that time, the patient was diagnosed with anterior wall KS with bradycardia and required temporary pacemaker and drug-eluting stent was placed in the right coronary ostium and 4 days later, the patient had another stent placed in the circumflex. The patient was taking aspirin, Plavix, and Xarelto after first admission in July. The patient was instructed to hold Xarelto 1 week before pacemaker and patient restarted Xarelto after pacemaker procedure. The patient is taking Xarelto almost a week and he is on aspirin, Plavix, and Xarelto lately. The patient was also constipated about a week ago and patient tried all kind of stool softener. After that, his constipation resolved, but after that, the patient noticed that he was having reddish pink blood with stool which continued for the last couple of days and that is why he was alarmed and he decided to go to the emergency room for evaluation. The patient went to [facility] where he was given 1 unit of blood. His creatinine was 1.56. He was hemodynamically stable at [place] [facility]. His other routine blood tests were unremarkable. His INR was 1.7 and hemoglobin initially 7.2. He did not have any further bleeding since he is in our hospital as well as he does not have any further bowel movement as well. He is not complaining of any chest pain, palpitation, dizziness. He denies any orthopnea, PND, or leg swelling. The patient denies any fever. The patient denies any abdominal pain associated with hematochezia. He denies any epigastric pain. He denies any hematemesis. REVIEW OF SYSTEMS: The following complete review of systems was negative, unless otherwise mentioned in the HPI or below: Constitutional: Weight loss or gain, ability to conduct usual activities. Skin: Rash, itching. Eyes: Double vision, pain. ENT/Mouth: Nose bleeding, neck stiffness, pain, tenderness. Cardiovascular: Palpitations, dyspnea on exertion, orthopnea. Respiratory: Shortness of breath, wheezing, cough, hemoptysis, fever or night sweats. Gastrointestinal: Poor appetite, abdominal pain, heartburn, nausea, vomiting, constipation, or diarrhea. Genitourinary: Urgency, frequency, dysuria, nocturia. Musculoskeletal: Pain, swelling. Neurologic/Psychiatric: Anxiety, depression. Allergy/Immunologic: Skin rash, bleeding tendency. Please see my HPI for pertinent positives and negatives. All other review of systems reviewed and negative except as mentioned in the HPI. ALLERGIES: SULFA DRUGS. CURRENT HOME MEDICATIONS: Aspirin 81 mg p.o. daily, clonidine 0.1 mg q.6 hourly p.r.n., Plavix 75 mg p.o. daily, vitamin B12 1000 mcg every 7 days, Multaq 400 mg p.o. b.i.d., Zetia 10 mg p.o. daily, ferrous sulfate 325 mg p.o. daily, lisinopril 5 mg p.o. daily, metoprolol 50 mg p.o. b.i.d., nisoldipine ( Sular) 8.5 mg p.o. daily, Protonix 40 mg p.o. daily, Xarelto 20 mg p.o. daily, Crestor 10 mg p.o. bedtime, Coenzyme Q10 100 mg p.o. daily. PAST MEDICAL HISTORY: History of esophageal stricture requiring intermittent dilatation, rosacea, recent history of ventricular fibrillation with KS and required cardioversion, history of inferior wall ST elevation KS in 07/2017 and required drug-eluting stent placed in the RCA and circumflex, paroxysmal atrial fibrillation, hypertension, dyslipidemia, moderate aortic stenosis, moderate aortic regurgitation, chronic anemia with iron and vitamin B12 supplementation, sick sinus syndrome requiring pacemaker recently, benign enlargement of prostate. PAST SURGICAL HISTORY: Carotid endarterectomy, tonsillectomy, pacemaker placement, cardiac catheterization with stent placement, esophageal dilatation. PAST PSYCHIATRY HISTORY: Reviewed and negative. SOCIAL HISTORY: The patient is . He lives at home. He drinks alcohol very occasionally. He denies any smoking. He denies any other illicit drug abuse. FAMILY HISTORY: No strong family history of premature coronary artery disease, stroke, or cancer. EMERGENCY ROOM COURSE: The patient has received 1 unit of blood at [place] [facility]. PHYSICAL EXAMINATION: VITAL SIGNS: On arrival to our emergency room, blood pressure 174/80, pulse 70 , respiratory rate 18, temperature 98.0, saturation 98% on room air, weight 55.7 kg. GENERAL: The patient is currently alert, awake. No obvious acute distress. HEAD: Normocephalic, atraumatic. EYES: Pupils are round and reactive to light. Extraocular muscles are intact. ENT: Oropharynx within normal limits. Moist mucous membranes. No oral lesions. No pharyngeal erythema, no exudates. NECK: Supple. No JVD, no thyromegaly, no carotid bruit, no jugular venous distention. LUNGS: Clear to auscultation without any rhonchi or rales. CARDIAC: S1 and S2 appears regular, systolic murmur present at aortic area as well as diastolic murmur present at apex, parasternal soft systolic murmur noted. No gallop, no rub. ABDOMEN: Soft, bowel sounds present. Nontender, nondistended. No organomegaly , no mass, no suprapubic tenderness. BACK: Unremarkable. No CVA tenderness. EXTREMITIES: Upper extremities: Passive movement of all joints are normal. Lower extremities: No edema. Good peripheral pulsation. SKIN: No skin rash. HEMATOLOGICAL: No lymphadenopathy. PSYCHIATRIC: Normal affect. SIGNIFICANT LABS: The patient's blood test done at [facility] completely reviewed by me. Currently; sodium 136, potassium 4.7 , chloride 104, carbon dioxide 24, calcium 8.4, total alkaline phosphatase 56, AST 27, ALT 17, protein 6.1, albumin 3.5, INR 1.7. WBC 8.4, hemoglobin 7.2. Occult blood positive. Platelet count 326. He had hemoglobin 8.7 and 8.4. INR 1.5, creatinine 1.47. Electrolytes and LFTs normal. ASSESSMENT AND PLAN: 1. Lower gastrointestinal bleed, acute. Most likely this patient was constipated and subsequently the bleeding started, so my suspicion is ischemic colitis versus diverticular bleed versus hemorrhoidal bleed. We will consult GI. I spoke with Dr. Oz Summers. We will monitor H&H and if hemoglobin drops , then we will consider blood transfusion. 2. Anemia due to acute blood loss. The patient has received 1 unit of PRBC and his hemoglobin is stable at this point, but we will watch H&H and if his hemoglobin drops and the patient has symptomatic, then we will consider blood transfusion. 3. Recent myocardial infarction and drug-eluting stent to RCA and circumflex. I spoke with Cardiology and Cardiology pretty much wanted to give him Plavix to prevent in-stent restenosis and I spoke with the reducing machine operator and they are also okay. At his point, continue with the Plavix. We will monitor H&H. There is risk and benefit on both sides. At this point, we decided to continue Plavix. The patient will need a colonoscopy preparation today and he will have procedure done tomorrow. Given his recent drug-eluting stent, we are going to continue Plavix today and we will watch H&H. Rest of his cardiac medicines will be continued. 4. Ventricular fibrillation, required cardioversion. The patient is currently on Multaq therapy which we will continue while in hospital. 5. Moderate aortic stenosis, aortic regurgitation, and tricuspid regurgitation based on echocardiography. We will monitor as an outpatient basis. Currently, problem is stable. 6. History of sick sinus syndrome requiring pacemaker. The pacemaker site is clean and healthy. 7. Paroxysmal atrial fibrillation. The patient was on chronic anticoagulation therapy with Xarelto, but at this point because of his lower gastrointestinal bleed, we are holding the Xarelto therapy and patient's rate is under control and he is on Multaq therapy. 8. Hypertension. The patient's blood pressure medication including lisinopril and metoprolol will continue while in hospital. We will also continue Sular 8.5 mg p.o. daily. 9. Dyslipidemia. We will continue Crestor 10 mg p.o. at bedtime. 10. Gastroesophageal reflux disease. We will continue Protonix 40 mg IV daily. 11. Chronic kidney disease stage 3. We will monitor renal function. The patient will be given gentle IV fluid. 12. Anemia, chronic. The patient will have ferrous sulfate 325 mg p.o. daily and vitamin B12 1000 mcg subcu every 7 days. 13. Deep venous thrombosis prophylaxis. We will avoid Lovenox or any Xarelto therapy because of lower gastrointestinal bleed. 14. Gastrointestinal prophylaxis. The patient is already on Protonix therapy. 15. Code status: The patient is FULL CODE. The patient's is surrogate decision maker. Disposition plan based on clinical course. This patient will need a colonoscopy tomorrow. He will have colonoscopy preparation today and to diagnose the underlying problem, he will get colonoscopy and once colonoscopy is done, then we will decide whether we need to restart his Xarelto and aspirin. Cardiology will be consulted while in hospital per family request to decide about an antiplatelet therapy. JUDY
[2017-09-10 18:10] LABS: Hemoglobin 8.6 g/dL (14.0-18.0)
[2017-09-10] MEDS: Dronedarone HCl 400 MG TAB PO SCH (18:27)
[2017-09-10] MEDS ORDERED: GoLYTELY 4,000 ml Bottle PO SCH (18:45)
[2017-09-10] MEDS: Rosuvastatin 10 MG TAB PO SCH (20:59)
[2017-09-10] MEDS: Metoprolol Tartrate 50 MG TAB PO SCH (20:59)
[2017-09-11 00:22] LABS: Hemoglobin 9.9 g/dL (14.0-18.0)
--- NOTE | 2017-09-11 01:23 | CON ---
DATE OF CONSULTATION: 09/10/2017 REASON FOR CONSULTATION: Hematochezia. CONSULTING PHYSICIAN: Lashell Person M.D. HISTORY OF PRESENT ILLNESS: The patient is an 82-year-old male with past medical history of ventricu lar fibrillation with NJ, status post cardioversion, inferior wall NJ in 07/2017, status post drug-el uting stent, paroxysmal atrial fibrillation, hypertension, hyperlipidemia, aortic stenosis, chronic a nemia, sick sinus syndrome, BPH, and moderate aortic regurgitation, presenting with hematochezia. He states that he was recently admitted to the hospital in 07/2017 with an inferior wall myocardial inf arction which required the placement of a drug-eluting stent at this time. [facility], and Xarelto as part of antithrombotic therapy related to this condition; nicholas froy, approximately 5 days ago, he began having bright red blood per rectum that was initially noted a s both bright red blood in the toilet and on the toilet paper in minimal amounts but has been progres sively getting worse over the last 5 days. The blood is only appearing when he has a bowel movement with blood mixed in with stool. Prior to this, he had complaints of constipation, having approximate ly 1 solid bowel movement every 3-4 days and accompanied with increased straining in order to defecat e. He has been taking a stool softener and Dulcolax (?) as part of a bowel regimen related to this c onstipation. Otherwise, he denies any other symptoms including nausea, vomiting, fevers, chills, abd ominal pain, hematemesis, dysphagia, or odynophagia. Of note, his last colonoscopy was approximately 10-12 years ago with unknown findings. He also endorses a family history of colon cancer with his f ather diagnosed with colon cancer at the age of 92. Upon chart review, he was noted to have a signif icantly decreased H&H at the [place] emergency room that prompted his transfer to [facility], since being transferred to [facility], he has not had any further hematochezia, nor any bowel movement at this time. REVIEW OF SYSTEMS: A ten category review of systems was obtained with all responses negative except for the pertinent positives as listed in the HPI. PAST MEDICAL HISTORY: As per HPI. PAST SURGICAL HISTORY: Carotid endarterectomy, tonsillectomy, pacemaker placement, cardiac catheteri zation with drug-eluting stent placement, and esophageal dilation. FAMILY HISTORY: Father diagnosed with colon cancer at the age of 92, no other GI cancers. SOCIAL HISTORY: Denies any tobacco or illicit drug use. Drinks approximately 1-2 drinks every 1-2 w eeks. HOME MEDICATIONS: Reviewed. ALLERGIES: SULFA. PHYSICAL EXAMINATION: VITAL SIGNS: Temperature of 97.4, pulse 69, blood pressure 146/65, respiratory rate 16, satting 96% on room air. GENERAL: The patient is lying in bed in no acute distress. Alert and oriented x4. HEENT/NECK: Supple. No JVD noted. CARDIOVASCULAR: Regular rate and rhythm. A high-pitched systolic murmur was heard at the right uppe r sternal border as well as a diastolic murmur heard at the left lower area of the heart along the mi dclavicular line. No gallops or rubs noted. ABDOMEN: Normoactive bowel sounds, soft, nontender, nondistended. EXTREMITIES: No cyanosis, clubbing, or edema. LABORATORY DATA: CBC with a white blood cell count of 7.8, hemoglobin 8.4, hematocrit 25.3, platelet s 281. Chemistry with a sodium of 136, potassium 4.8, chloride 106, CO2 25, BUN 27, creatinine 1.47, platelets 91, AST 25, ALT 17, alkaline phosphatase 48, total bilirubin 0.3. INR 1.5. IMAGING DATA: No current GI imagings or imaging studies are all available for review. ASSESSMENT AND PLAN: The patient is an 82-year-old male with significant past cardiac history includ ing ventricular fibrillation, status post myocardial infarction and cardioversion, inferior wall myoc ardial infarction, status post drug-eluting stent, paroxysmal atrial fibrillation, aortic stenosis, h ypertension, hyperlipidemia, sick sinus syndrome, and anemia presenting with hematochezia. Hematochezia: The patient is presenting with the acute onset of hematochezia approximately 5 days ag o that initially started with minimal amounts of bright red blood per rectum. Shortly prior to the o ccurrence of this blood in his stool, he complained of increased constipation and increased straining in order to defecate raising the concern for hemorrhoidal bleeding. When coupled with his concurren t administration of aspirin, Plavix, and Xarelto any sort of GI insult could potentially result in in creased bleeding and/or blood loss. At this time, the differential for hematochezia is broad but cou ld include hemorrhoidal bleeding, arteriovenous malformation, Dieulafoy lesion, stercoral ulceration (given his strong history of constipation), ischemic colitis, and/or malignancy. At this point, he w ould benefit from colonoscopy evaluation given that his last prior colonoscopy was approximately 10-1 2 years ago. RECOMMENDATIONS: 1. Would continue to trend H&H and transfuse as necessary to maintain an H&H of 03/01. 2. We will plan for a colonoscopy tomorrow. We will place an order for GoLYTELY administration she ght and please make the patient n.p.o. at midnight in preparation for the procedure. 3. Would continue to hold the Xarelto prior to the procedure given an increased risk of bleeding wit h any GI intervention. However, given his significant past cardiac history and recent drug-eluting s tent placement, would continue the aspirin and Plavix as part of antithrombotic therapy. We will continue to follow. Please call with any questions.
[2017-09-11] MEDS: Sodium Chloride 0.9% 1,000 ML IV SCH ×3 (05:04→17:07)
[2017-09-11 06:25] LABS: #Eosinphils 0.2 thou/uL (0.0-0.7); #Lymphocytes 2.1 thou/uL (1.20-3.40); #Monocytes 0.7 thou/uL (0.11-0.59); #Neutrophils 7.6 thou/uL (1.40-6.50); %Basophils 0.4 % (0.0-1.0); %Eosinophils 2.3 % (0.0-10.0); %Lymphocytes 19.9 % (21.0-51.0); %Monocytes 6.2 % (0.0-10.0); %Neutrophils 71.4 % (42.0-75.0); Hemoglobin 10.2 g/dL (14.0-18.0); Mean Corpuscular HGB CONC 33.8 g/dL (32.0-36.0); Mean Corpuscular Hemoglobin 29.9 pg (27.0-31.0); Mean Corpuscular Volume 88.4 fl (80.0-94.0); Mean Platelet Volume 7.2 fL (7.4-10.4); Platelet Count 363 thou/uL (130-400); RBC Distribution Width 13.2 % (11.5-14.5); Red Blood Cell (RBC) Count 3.42 mill/uL (4.70-6.10); White Blood Cell (WBC) Count 10.6 thou/uL (4.8-10.8)
[2017-09-11 06:30] LABS: ALT (SGPT) 15 U/L (8-55); AST (SGOT) 31 U/L (5-34); Albumin 3.9 g/dL (3.4-4.8); Alkaline Phosphatase 62 U/L (40-150); Anion Gap 14 mmol/L (10-20); BUN (Urea Nitrogen) 13 mg/dL (8.4-25.7); Bilirubin, Total 0.7 mg/dL (0.2-1.2); Calc. Creatinine Clearance 41 mL/min (70-130); Calcium 8.9 mg/dL (7.8-10.44); Carbon Dioxide 23 mmol/L (23-31); Chloride 104 mmol/L (98-107); Estimated GFR-MDRD 59; Glucose 80 mg/dL (83-110); Potassium 4.8 mmol/L (3.5-5.1); Protein, Total 6.9 g/dL (5.8-8.1); Sodium 136 mmol/L (136-145)
--- NOTE | 2017-09-11 10:46 | PDOC.PN ---
- Subjective Encounter Start Date: 09/11/17 Encounter Start Time: 08:40 -: old records requested/rev Patient seen and examined. No new complaints. No overnight events no further bleeding - Objective Resuscitation Status: Resuscitation Status FULL:Full Resuscitation MAR Reviewed: Yes Vital Signs & Weight: Vital Signs (12 hours) Temp Pulse Resp BP Pulse Ox 09/11/17 09:00 97.0 F L 70 18 177/75 H 97 09/11/17 08:00 97.4 F L 60 18 96 09/11/17 04:00 97.4 F L 98 18 156/78 H 97 Weight Weight 136 lb 3 oz I&O: 09/10/17 09/11/17 09/12/17 06:59 06:59 06:59 Intake Total 5600 Output Total 1200 Balance 4400 Result Diagrams: 09/11/17 04:59 09/11/17 04:59 EKG Reviewed by me: Yes Phys Exam - Physical Examination Constitutional: NAD HEENT: PERRLA, moist MMs, sclera anicteric Neck: no JVD, supple Respiratory: no wheezing, no rales, no rhonchi Cardiovascular: RRR SM+ Gastrointestinal: soft, non-tender, no distention, positive bowel sounds Musculoskeletal: no edema, pulses present Neurological: non-focal, normal sensation, moves all 4 limbs Psychiatric: normal affect, A&O x 3 Skin: no rash, normal turgor Dx/Plan (1) Acute lower GI bleeding Code(s): K92.2 - GASTROINTESTINAL HEMORRHAGE, UNSPECIFIED Status: Acute (2) Anemia due to acute blood loss Code(s): D62 - ACUTE POSTHEMORRHAGIC ANEMIA Status: Acute (3) CAD (coronary artery disease) Code(s): I25.10 - ATHSCL HEART DISEASE OF [place] CORONARY ARTERY W/O ANG PCTRS Status: Chronic (4) CKD (chronic kidney disease) stage 3, GFR 30-59 ml/min Code(s): N18.3 - CHRONIC KIDNEY DISEASE, STAGE 3 (MODERATE) Status: Chronic (5) Dyslipidemia Code(s): E78.5 - HYPERLIPIDEMIA, UNSPECIFIED Status: Chronic (6) GERD (gastroesophageal reflux disease) Code(s): K21.9 - GASTRO-ESOPHAGEAL REFLUX DISEASE WITHOUT ESOPHAGITIS Status: Chronic (7) Hypertension Code(s): I10 - ESSENTIAL (PRIMARY) HYPERTENSION Status: Chronic (8) Moderate aortic regurgitation Code(s): I35.1 - NONRHEUMATIC AORTIC (VALVE) INSUFFICIENCY Status: Chronic (9) Moderate aortic stenosis by prior echocardiogram Code(s): I35.0 - NONRHEUMATIC AORTIC (VALVE) STENOSIS Status: Chronic (10) Moderate tricuspid regurgitation by prior echocardiogram Code(s): I07.1 - RHEUMATIC TRICUSPID INSUFFICIENCY Status: Chronic (11) SSS (sick sinus syndrome) Code(s): I49.5 - SICK SINUS SYNDROME Status: Chronic - Plan cont current plan of care, plan discussed w/ family * now H & H stable * today plan for colonoscopy * discussed with family * hold regan * cardiology will see later today * medication reviewed as below * symptomatic treatment * repeat labs tomorrow * will plan for discharge tomorrow. Review of Systems - Review of Systems ENT: negative: Ear Pain, Ear Discharge, Nose Pain, Nose Discharge, Nose Congestion, Mouth Pain, Mouth Swelling, Throat Pain, Throat Swelling, Other Respiratory: negative: Cough, Dry, Shortness of Breath, Hemoptysis, SOB with Excertion, Pleuritic Pain, Sputum, Wheezing Cardiovascular: negative: chest pain, palpitations, orthopnea, paroxysmal nocturnal dyspnea, edema, light headedness, other Gastrointestinal: negative: Nausea, Vomiting, Abdominal Pain, Diarrhea, Constipation, Melena, Hematochezia, Other Genitourinary: negative: Dysuria, Frequency, Incontinence, Hematuria, Retention , Other Musculoskeletal: negative: Neck Pain, Shoulder Pain, Arm Pain, Back Pain, Hand Pain, Leg Pain, Foot Pain, Other Skin: negative: Rash, Lesions, Joel, Bruising, Other - Medications/Allergies Allergies/Adverse Reactions: Allergies Allergy/AdvReac Type Severity Reaction Status Date / Time Sulfa (Sulfonamide Allergy Verified 09/10/17 10:30 Antibiotics) Medications: Current Medications Acetaminophen (Tylenol) 650 mg PO Q4H PRN PRN Reason: Headache/Fever or Pain Hydrocodone Bitart/Acetaminophen ([place] 5/325) 1 tab PO Q4H PRN PRN Reason: Moderate Pain (4-6) Al Hydroxide/Mg Hydroxide (Maalox) 30 ml PO Q6H PRN PRN Reason: Heartburn or Indigestion Artificial Tears (Tears Naturale) 0 drop EA EYE PRN PRN PRN Reason: Dry Eyes Aspirin (Aspirin Chewable) 81 mg PO DAILY [facility] Clonidine (Catapres) 0.1 mg PO Q4H PRN PRN Reason: SBP Greater Than 170 Clopidogrel Bisulfate (Plavix) 75 mg PO DAILY [facility] Coenzyme Q10 (Coenzyme Q10) 100 mg PO DAILY [facility] Last Admin: 09/10/17 12:11 Dose: 100 mg Cyanocobalamin (Vitamin B-12) 1,000 mcg SC Q7D@0900 [facility] Dronedarone (Multaq) [facility] Last Admin: 09/10/17 18:27 Dose: 400 mg Ezetimibe (Zetia) 10 mg PO DAILY [facility] Last Admin: 09/10/17 12:11 Dose: 10 mg Ferrous Sulfate (Feosol) [facility] Guaifenesin (Robitussin Sf) 200 mg PO Q4H PRN PRN Reason: Cough Hydralazine HCl (Apresoline) 10 mg SLOW IVP Q4H PRN PRN Reason: Systolic BP > 180 Sodium Chloride (Normal Saline 0.9%) 1,000 mls @ 75 mls/hr IV .[id number] [facility] Last Admin: 09/11/17 05:04 Dose: Not Given Labetalol HCl (Normodyne) 20 mg SLOW IVP Q4H PRN PRN Reason: Systolic BP > 180 Lisinopril (Zestril) 5 mg PO DAILY [facility] Last Admin: 09/10/17 12:11 Dose: 5 mg Loperamide HCl (Imodium) 2 mg PO PRN PRN PRN Reason: Diarrhea/Loose Stools Loratadine (Claritin) 10 mg PO DAILYPRN PRN PRN Reason: Sinus Symptoms Magnesium Hydroxide (Milk Of Magnesium) 30 ml PO DAILYPRN PRN PRN Reason: Constipation Metoprolol Tartrate (Lopressor) 50 mg PO BID [facility] Last Admin: 09/10/17 20:59 Dose: 50 mg Mineral Oil/White Petrolatum (Eucerin Cream) 0 gm TOP BIDPRN PRN PRN Reason: Dry Skin Nisoldipine (Sular) 8.5 mg PO DAILY [facility] Last Admin: 09/10/17 12:12 Dose: 8.5 mg Nitroglycerin (Nitrostat) 0.4 mg SL Q5MIN PRN PRN Reason: Chest Pain Ondansetron HCl (Zofran Odt) 4 mg PO Q6H PRN PRN Reason: Nausea/Vomiting Ondansetron HCl (Zofran) 4 mg IVP Q6H PRN PRN Reason: Nausea/Vomiting Pantoprazole Sodium (Protonix) 40 mg IVP DAILY [facility] Last Admin: 09/10/17 12:13 Dose: 40 mg Phenol (Chloraseptic [place] 180 Ml Bot) 0 ml PO PRN PRN PRN Reason: Sore Throat Polyethylene Glycol/Electrolytes (Golytely) 4,000 ml PO ONE [facility] Stop: 09/11/17 18:46 Last Admin: 09/10/17 20:59 Dose: 4,000 ml Rosuvastatin Calcium (Crestor) 10 mg PO HS [facility] Last Admin: 09/10/17 20:59 Dose: 10 mg Senna (Senokot) 2 tab PO HSPRN PRN PRN Reason: Constipation Sodium Chloride ([place] 0.65%) 0 ml EA NARE QIDPRN PRN PRN Reason: Nasal Congestion Sodium Chloride (Flush - Normal Saline) 10 ml IVF Q12HR [facility] Sodium Chloride (Flush - Normal Saline) 10 ml IVF PRN PRN PRN Reason: Saline Flush Zolpidem Tartrate (Ambien) 5 mg PO HSPRN PRN PRN Reason: Insomnia
[2017-09-11] MEDS: Dronedarone HCl 400 MG TAB PO SCH ×2 (10:50→17:01)
[2017-09-11] MEDS: Lisinopril 5 MG TAB PO SCH (10:50)
[2017-09-11] MEDS: Ezetimibe 10 MG TAB PO SCH (10:50)
[2017-09-11] MEDS: Metoprolol Tartrate 50 MG TAB PO SCH ×2 (10:50→22:25)
--- NOTE | 2017-09-11 13:27 | OP ---
PREOPERATIVE DIAGNOSIS: Gastrointestinal bleed. PROCEDURE: After informed consent was obtained, the patient was placed in the left lateral decubitus position. Anesthesia was administered per the Anesthesia Department. Forward-viewing endoscope was inserted into the rectum after perianal inspection and rectal exam were normal and passed to the cec um with ease. The cecum, ileocecal valve, and appendiceal orifice were normal. The terminal ileum w as normal. The prep was fair. The ascending, transverse, descending, sigmoid, and rectum were all n ormal. No bloody effluent was noted in the colon. There was 1 small 5 mm polyp in the descending co tonya that was removed with cold polypectomy snare. The polyp was not retrieved. Sigmoid diverticula were noted. Retroflexion of the rectum showed medium internal hemorrhoids. ASSESSMENT: 1. One small descending colon polyp - status post polypectomy. 2. Left-sided diverticulosis coli. 3. Medium internal hemorrhoids - suspect this to be the source of the bleeding. Since there was no bloody effluent, the prep was suboptimal. 4. Poor prep. RECOMMENDATIONS: 1. Daily MiraLax. 2. Okay to resume Xarelto tomorrow. 3. Outpatient colonoscopy in the near future.
[2017-09-11] MEDS ORDERED: PROPOFOL 200 MG/20 ML VIAL ONE (15:15)
[2017-09-11] MEDS ORDERED: Lidocaine 1% PF 5 ML VIAL ONE (15:15)
[2017-09-11] MEDS ORDERED: PHENYLEPHRINE-NS 100 MCG/ML 10 ML SYRINGE ONE (15:15)
[2017-09-11] MEDS: Clopidogrel Bisulfate 75 MG TAB PO SCH (17:01)
[2017-09-11] MEDS: Ubidecarenone 50 MG CAP PO SCH (17:01)
[2017-09-11] MEDS: Ferrous Sulfate 325 MG TAB PO SCH (17:01)
[2017-09-11] MEDS: Pantoprazole 40 MG VIAL IVP SCH (17:02)
[2017-09-11] MEDS: Nisoldipine 8.5 MG TAB PO SCH (17:02)
[2017-09-11] MEDS: Rosuvastatin 10 MG TAB PO SCH (22:26)
[2017-09-12] MEDS: Sodium Chloride 0.9% 1,000 ML IV SCH (06:17)
[2017-09-12] MEDS: Lisinopril 5 MG TAB PO SCH (09:39)
[2017-09-12] MEDS: Dronedarone HCl 400 MG TAB PO SCH (09:39)
[2017-09-12] MEDS: Ferrous Sulfate 325 MG TAB PO SCH (09:39)
[2017-09-12] MEDS: Clopidogrel Bisulfate 75 MG TAB PO SCH (09:39)
[2017-09-12] MEDS: Ezetimibe 10 MG TAB PO SCH (09:39)
[2017-09-12] MEDS: Metoprolol Tartrate 50 MG TAB PO SCH (09:40)
[2017-09-12] MEDS: Ubidecarenone 50 MG CAP PO SCH (09:40)
[2017-09-12] MEDS: Pantoprazole 40 MG VIAL IVP SCH (09:41)
[2017-09-12 09:44] VITALS: BP 165/74
[2017-09-12 10:44] VITALS: TEMP 98
--- NOTE | 2017-09-12 10:49 | PDOC.PN ---
- Subjective Encounter Start Date: 09/12/17 Encounter Start Time: 08:10 Patient seen and examined. No new complaints. No overnight events - Objective Resuscitation Status: Resuscitation Status FULL:Full Resuscitation MAR Reviewed: Yes Vital Signs & Weight: Vital Signs (12 hours) Temp Pulse Resp BP BP Pulse Ox 09/12/17 09:39 67 165/74 H 09/12/17 08:00 98 F 83 16 165/74 H 95 09/12/17 04:00 97.6 F 88 18 155/78 H 98 Weight Admit Weight 136 lb 3 oz Weight 136 lb 3 oz I&O: 09/11/17 09/12/17 09/13/17 06:59 06:59 06:59 Intake Total 5600 2535 Output Total 1200 550 Balance 4400 1984 Result Diagrams: 09/11/17 04:59 09/11/17 04:59 EKG Reviewed by me: Yes Phys Exam - Physical Examination Constitutional: NAD HEENT: PERRLA, moist MMs, sclera anicteric Neck: no JVD, supple Respiratory: no wheezing, no rales, no rhonchi Cardiovascular: RRR, no rub SM+ Gastrointestinal: soft, non-tender, no distention, positive bowel sounds Musculoskeletal: no edema, pulses present Neurological: non-focal, normal sensation, moves all 4 limbs Psychiatric: normal affect, A&O x 3 Skin: no rash, normal turgor Dx/Plan (1) Acute lower GI bleeding Code(s): K92.2 - GASTROINTESTINAL HEMORRHAGE, UNSPECIFIED Status: Acute (2) Anemia due to acute blood loss Code(s): D62 - ACUTE POSTHEMORRHAGIC ANEMIA Status: Acute (3) CAD (coronary artery disease) Code(s): I25.10 - ATHSCL HEART DISEASE OF [place] CORONARY ARTERY W/O ANG PCTRS Status: Chronic (4) CKD (chronic kidney disease) stage 3, GFR 30-59 ml/min Code(s): N18.3 - CHRONIC KIDNEY DISEASE, STAGE 3 (MODERATE) Status: Chronic (5) Dyslipidemia Code(s): E78.5 - HYPERLIPIDEMIA, UNSPECIFIED Status: Chronic (6) GERD (gastroesophageal reflux disease) Code(s): K21.9 - GASTRO-ESOPHAGEAL REFLUX DISEASE WITHOUT ESOPHAGITIS Status: Chronic (7) Hypertension Code(s): I10 - ESSENTIAL (PRIMARY) HYPERTENSION Status: Chronic (8) Moderate aortic regurgitation Code(s): I35.1 - NONRHEUMATIC AORTIC (VALVE) INSUFFICIENCY Status: Chronic (9) Moderate aortic stenosis by prior echocardiogram Code(s): I35.0 - NONRHEUMATIC AORTIC (VALVE) STENOSIS Status: Chronic (10) Moderate tricuspid regurgitation by prior echocardiogram Code(s): I07.1 - RHEUMATIC TRICUSPID INSUFFICIENCY Status: Chronic (11) SSS (sick sinus syndrome) Code(s): I49.5 - SICK SINUS SYNDROME Status: Chronic - Plan cont current plan of care, plan discussed w/ family * medication reviewed as below * symptomatic treatment * see discharge summery * all new medication prescription sent to pharmacy. Review of Systems - Review of Systems ENT: negative: Ear Pain, Ear Discharge, Nose Pain, Nose Discharge, Nose Congestion, Mouth Pain, Mouth Swelling, Throat Pain, Throat Swelling, Other Respiratory: negative: Cough, Dry, Shortness of Breath, Hemoptysis, SOB with Excertion, Pleuritic Pain, Sputum, Wheezing Cardiovascular: negative: chest pain, palpitations, orthopnea, paroxysmal nocturnal dyspnea, edema, light headedness, other Gastrointestinal: negative: Nausea, Vomiting, Abdominal Pain, Diarrhea, Constipation, Melena, Hematochezia, Other Genitourinary: negative: Dysuria, Frequency, Incontinence, Hematuria, Retention , Other Musculoskeletal: negative: Neck Pain, Shoulder Pain, Arm Pain, Back Pain, Hand Pain, Leg Pain, Foot Pain, Other Skin: negative: Rash, Lesions, Joel, Bruising, Other - Medications/Allergies Allergies/Adverse Reactions: Allergies Allergy/AdvReac Type Severity Reaction Status Date / Time Sulfa (Sulfonamide Allergy Verified 09/10/17 10:30 Antibiotics) Medications: Current Medications Acetaminophen (Tylenol) 650 mg PO Q4H PRN PRN Reason: Headache/Fever or Pain Hydrocodone Bitart/Acetaminophen ([place] 5/325) 1 tab PO Q4H PRN PRN Reason: Moderate Pain (4-6) Al Hydroxide/Mg Hydroxide (Maalox) 30 ml PO Q6H PRN PRN Reason: Heartburn or Indigestion Artificial Tears (Tears Naturale) 0 drop EA EYE PRN PRN PRN Reason: Dry Eyes Aspirin (Aspirin Chewable) 81 mg PO DAILY [facility] Last Admin: 09/12/17 09:41 Dose: 81 mg Clonidine (Catapres) 0.1 mg PO Q4H PRN PRN Reason: SBP Greater Than 170 Clopidogrel Bisulfate (Plavix) 75 mg PO DAILY [facility] Last Admin: 09/12/17 09:39 Dose: 75 mg Coenzyme Q10 (Coenzyme Q10) 100 mg PO DAILY [facility] Last Admin: 09/12/17 09:40 Dose: 100 mg Cyanocobalamin (Vitamin B-12) 1,000 mcg SC Q7D@0900 [facility] Dronedarone (Multaq) [facility] Last Admin: 09/12/17 09:39 Dose: 400 mg Ezetimibe (Zetia) 10 mg PO DAILY [facility] Last Admin: 09/12/17 09:39 Dose: 10 mg Ferrous S[facility]ate (Fe[facility]ol) [facility] Last Admin: 09/12/17 09:39 Dose: 325 mg Guaifenesin (Robitussin Sf) 200 mg PO Q4H PRN PRN Reason: Cough Hydralazine HCl (Apresoline) 10 mg SLOW IVP Q4H PRN PRN Reason: Systolic BP > 180 Sodium Chloride (Normal Saline 0.9%) 1,000 mls @ 75 mls/hr IV .[id number] [facility] Last Admin: 09/12/17 06:17 Dose: 1,000 mls Labetalol HCl (Normodyne) 20 mg SLOW IVP Q4H PRN PRN Reason: Systolic BP > 180 Lisinopril (Zestril) 5 mg PO DAILY [facility] Last Admin: 09/12/17 09:39 Dose: 5 mg Loperamide HCl (Imodium) 2 mg PO PRN PRN PRN Reason: Diarrhea/Loose Stools Loratadine (Claritin) 10 mg PO DAILYPRN PRN PRN Reason: Sinus Symptoms Magnesium Hydroxide (Milk Of Magnesium) 30 ml PO DAILYPRN PRN PRN Reason: Constipation Metoprolol Tartrate (Lopressor) 75 mg PO BID [facility] Last Admin: 09/12/17 09:40 Dose: 75 mg Mineral Oil/White Petrolatum (Eucerin Cream) 0 gm TOP BIDPRN PRN PRN Reason: Dry Skin Nisoldipine (Sular) 8.5 mg PO DAILY [facility] Last Admin: 09/11/17 17:02 Dose: 8.5 mg Nitroglycerin (Nitrostat) 0.4 mg SL Q5MIN PRN PRN Reason: Chest Pain Ondansetron HCl (Zofran Odt) 4 mg PO Q6H PRN PRN Reason: Nausea/Vomiting Ondansetron HCl (Zofran) 4 mg IVP Q6H PRN PRN Reason: Nausea/Vomiting Pantoprazole Sodium (Protonix) 40 mg IVP DAILY [facility] Last Admin: 09/12/17 09:41 Dose: 40 mg Phenol (Chloraseptic [place] 180 Ml Bot) 0 ml PO PRN PRN PRN Reason: Sore Throat Rosuvastatin Calcium (Crestor) 10 mg PO HS [facility] Last Admin: 09/11/17 22:26 Dose: 10 mg Senna (Senokot) 2 tab PO HSPRN PRN PRN Reason: Constipation Sodium Chloride ([place] Nasal [place] 0.65%) 0 ml EA NARE QIDPRN PRN PRN Reason: Nasal Congestion Sodium Chloride (Flush - Normal Saline) 10 ml IVF Q12HR [facility] Last Admin: 09/12/17 09:42 Dose: 10 ml Sodium Chloride (Flush - Normal Saline) 10 ml IVF PRN PRN PRN Reason: Saline Flush Zolpidem Tartrate (Ambien) 5 mg PO HSPRN PRN PRN Reason: Insomnia
--- NOTE | 2017-09-12 10:50 | DIS ---
DATE OF ADMISSION: 09/10/2017 DATE OF DISCHARGE: 09/12/2017 PRIMARY CARE PHYSICIAN: Dr. Jillian Galvin. DISCHARGE DISPOSITION: Home. PRIMARY DISCHARGE DIAGNOSES: 1. Acute lower gastrointestinal bleed, suspected from hemorrhoidal bleed. 2. Anemia due to acute blood loss. SECONDARY DISCHARGE DIAGNOSES: History of sick sinus syndrome with pacemaker, moderate tricuspid reg urgitation, moderate aortic stenosis, moderate aortic regurgitation, hypertension, gastroesophageal r eflux disease, dyslipidemia, CKD stage 3, coronary artery disease. PRIMARY PROCEDURE/OPERATION: Colonoscopy was performed by Dr. Kahn and found with colon polyp, which was removed; diverticulosis, and internal hemorrhoid. RADIOLOGICAL INVESTIGATION: None. SIGNIFICANT LABORATORY: Hemoglobin 10.2, INR 1.5, creatinine 1.18. DISCHARGE MEDICATIONS: Aspirin 81 mg p.o. daily, Plavix 75 mg p.o. daily, Xarelto 20 mg p.o. daily, Crestor 10 mg p.o. bedtime, Coenzyme Q10 100 mg p.o. daily, Protonix 40 mg p.o. daily, Sular 8.5 mg p .o. daily, Lopressor 75 mg p.o. b.i.d., ferrous sulfate 325 mg p.o. daily, Zetia 10 mg p.o. daily, Mu l[place]q 400 mg p.o. b.i.d., vitamin B12 1000 mcg every 7 days, clonidine 0.1 mg q.6 hourly p.r.n. CONTRAINDICATIONS: None. CODE STATUS: FULL CODE. INPATIENT CONSULTANTS: Dr. Garcia and Dr. Miranda was following while in hospital. Dr. Oz leyva was consulted for GI bleed. TEST RESULTS PENDING ON DISCHARGE: None. ALLERGIES: SULFA DRUGS. DISCHARGE PLAN: Post hospital, the patient will follow up with Dr. Miranda, Dr. Oz Summers, primary children[facility] hospital physician. HOSPITAL COURSE: An 82-year-old male who was admitted by me. Please see my HPI for further detail. This patient was having lower GI bleed. It was suspected for hemorrhoidal bleed versus ischemic col itis versus diverticular bleed. He was given 1 unit of blood transfusion at [place] emergency room. Subsequently, he did not have any further bleeding. We consulted Cardiology because the patient has a recent history of a drug-eluting stent placed and that is why they recommended to continue aspirin and Plavix. We hold Xarelto while in hospital, but after colonoscopy, Dr. Kahn recommended to resum e Xarelto therapy as well. At this point, the patient is medically stable. All consultants are okay with discharging him home t sameera. The patient also wants to go home today. The patient is instructed to continue the above-ment ioned medication and if he has recurrent bleeding in future and if he gets symptomatic anemia, then d ose of Xarelto can be reduced. The patient will follow up with Dr. Miranda to discuss about antiplatelet and anticoagulant therapy. The patient is seen and examined at bedside today. Please see my progress note from today for furthe r details.
[2017-09-12] MEDS: Nisoldipine 8.5 MG TAB PO SCH (11:44)
[2017-09-17] MEDS ORDERED: Cyanocobalamin 1000 MCG/ML VIAL SC SCH (09:00)
== END 2017-09-12 12:07 | disposition home or self-care (01) | DRG 394 ==
LOC: ERS → ERHOLD 01:35 → 2NO 09:48
PROVIDERS: ADMIT Family Medicine; ATTEND Family Medicine
PROC: 0DBM8ZZ Excision of Descending Colon, Via Natural or Artificial Opening Endoscopic (ICD-10-PCS; principal; 2017-09-11)
DX: K64.8 Other hemorrhoids (principal); D62 Acute posthemorrhagic anemia; I48.0 Paroxysmal atrial fibrillation; I49.5 Sick sinus syndrome; I36.1 Nonrheumatic tricuspid (valve) insufficiency; I35.2 Nonrheumatic aortic (valve) stenosis with insufficiency; N18.3 Chronic kidney disease, stage 3 (moderate); I12.9 Hypertensive chronic kidney disease with stage 1 through stage 4 chronic kidney disease, or unspecified chronic kidney disease; K63.5 Polyp of colon; K57.30 Diverticulosis of large intestine without perforation or abscess without bleeding; N40.0 Benign prostatic hyperplasia without lower urinary tract symptoms; I25.2 Old myocardial infarction; Z88.2 Allergy status to sulfonamides; Z79.01 Long term (current) use of anticoagulants; Z79.02 Long term (current) use of antithrombotics/antiplatelets; Z79.82 Long term (current) use of aspirin; Z79.899 Other long term (current) drug therapy; Z95.0 Presence of cardiac pacemaker; Z95.5 Presence of coronary angioplasty implant and graft
CPT/HCPCS: 36415; 80053; 85025; 85610; 85730; 86850; 86900; 86901; A4216; C9113; J2001; J2704

== ENCOUNTER 2018-05-05 14:04 | Observation (INO) | payer MEDICARE, OTHER ==
[~2018-05-05 14:04] MED LIST: Dexamethasone 20 MG/5 ML VIAL ONE; Lidocaine 1% PF 5 ML VIAL ONE; Ondansetron HCl/PF 4 MG/2 ML Vial ONE; PROPOFOL 200 MG/20 ML VIAL ONE; Succinylcholine Chloride 20 MG/ML 10 ml SYRINGE FS ONE
[2018-05-05] MEDS ORDERED: Ondansetron HCl/PF 4 MG/2 ML Vial ONE (14:21)
[2018-05-05 14:37] LABS: #Basophils 0.1 thou/uL (0.0-0.2); #Eosinphils 0.1 thou/uL (0.0-0.7); #Lymphocytes 2.4 thou/uL (1.20-3.40); #Monocytes 0.5 thou/uL (0.11-0.59); #Neutrophils 9.4 thou/uL (1.40-6.50); %Basophils 0.4 % (0.0-1.0); %Lymphocytes 19.4 % (21.0-51.0); %Neutrophils 75.2 % (42.0-75.0); Hemoglobin 13.5 g/dL (14.0-18.0); Mean Corpuscular HGB CONC 33.1 g/dL (32.0-36.0); Mean Corpuscular Volume 90.8 fL (78.0-98.0); Mean Platelet Volume 7.2 fL (7.4-10.4); Platelet Count 254 thou/uL (130-400); RBC Distribution Width 11.9 % (11.5-14.5); Red Blood Cell (RBC) Count 4.49 mill/uL (4.70-6.10); White Blood Cell (WBC) Count 12.5 thou/uL (4.8-10.8)
[2018-05-05 14:47] LABS: INR-International Normal Ratio 2.4; PTT 33.6 SEC (22.9-36.1)
[2018-05-05 14:58] LABS: ALT (SGPT) 30 U/L (8-55); AST (SGOT) 33 U/L (5-34); Albumin 4.4 g/dL (3.4-4.8); Alkaline Phosphatase 70 U/L (40-150); Anion Gap 17 mmol/L (10-20); BUN (Urea Nitrogen) 21 mg/dL (8.4-25.7); Bilirubin, Total 0.8 mg/dL (0.2-1.2); CK (CPK) 42 U/L (30-200); Calc. Creatinine Clearance 0 mL/min (70-130); Calcium 9.6 mg/dL (7.8-10.44); Carbon Dioxide 21 mmol/L (23-31); Chloride 102 mmol/L (98-107); Estimated GFR-MDRD 38; Globulin 3.3 g/dL (2.4-3.5); Glucose 136 mg/dL (83-110); Potassium 4.2 mmol/L (3.5-5.1); Protein, Total 7.7 g/dL (5.8-8.1); Sodium 136 mmol/L (136-145)
[2018-05-05 15:02] LABS: Troponin I Less than 0.010 ng/mL (< 0.028)
[2018-05-05] MEDS ORDERED: Metoclopramide HCl 10 MG/2 ML VIAL ONE (15:14)
--- NOTE | 2018-05-05 15:46 | RAD ---
CHEST TWO VIEWS: Comparison: None History: Weakness and chest pain. FINDINGS: Coronary stents, left sided transvenous pacemaker are noted. There is atherosclerosis of the aorta. N ormal cardiac silhouette. Pulmonary vessels and hilum are normal. Costophrenic angles are clear. No m asses or consolidation. No pneumothorax or osseous abnormalities. IMPRESSION: No acute cardiopulmonary process. POS: [facility]
[2018-05-05] MEDS ORDERED: Fentanyl 100 MCG/2 ML VIAL ONE (17:04)
[2018-05-05] MEDS ORDERED: Pantoprazole 40 MG VIAL IVP SCH (20:30)
[2018-05-05 20:44] VITALS: BMI 19.8
[2018-05-06] MEDS ORDERED: Ondansetron HCl/PF 4 MG/2 ML Vial IVP PRN (00:22)
[2018-05-06] MEDS ORDERED: Sodium Chloride 0.9% 1,000 ML IV SCH (00:30)
[2018-05-06] MEDS: Sodium Chloride 0.9% 1,000 ML IV SCH ×2 (00:50→08:50)
--- NOTE | 2018-05-06 01:18 | OP ---
PROCEDURE: Esophagogastroduodenoscopy. PREPROCEDURE DIAGNOSES: 1. Episode of bolus obstruction earlier today with foreign body in the lower chest and difficu lty hearing secretions in the ER, but not difficulty handling them in day stay. 2. Anticoagulant with Plavix and Xarelto with INR 2.4. ANESTHESIA: General endotracheal anesthesia. POSTPROCEDURE DIAGNOSES: 1. Inflammation and stricturing at the distal esophagus. This is to be passed with some force with endoscope. No foreign body was noted. There was old food residual in the stomach, which was irrigat ed and suctioned away. Retroflexed view showed no evidence of mass at the GE junction. This soft st omach and duodenum were otherwise normal. 2. The esophagus had inflammation consistent with reflux and there does appear to be a stricture. T here was some trauma with passage of the scope, no foreign body was seen. RECOMMENDATIONS: 1. Protonix 40 mg p.o. b.i.d. 2. Hold Xarelto and Plavix. 3. EGD with dilatation at the end of the week. 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 PROCEDURE IN DETAIL: After the patient was informed of the risks, benefits, possible complications o f endoscopy including perforation, bleeding, reaction to medication and aspiration, informed consent was obtained. The patient brought to the endoscopy suite, where he was sedated in a gradual fashion. Once he was comfortable, he was intubated by Anesthesia. Once his airway was secured, a bite block entered into the esophagus carefully in the distal esophagus. No foreign body was seen to the GE ju nction with a tight stricture area. The scope before somewhat to get beyond this area, there were sm all amount of laceration mucosa without significant bleeding. There was some slight oozing, which st opped this procedure was observed. There was inflammation in the distal esophagus consistent with re flux. There was no evidence of masses or lesions, could not determine whether or not there is any Ba rrett's present because of the inflammation. There were no ulcers present. Retroflexed views in the stomach were normal. The stomach was normal in forward view and normal in the duodenum. The scope was removed. The patient tolerated the procedure well without any complications.
--- NOTE | 2018-05-06 01:28 | HP ---
CHIEF COMPLAINT: Nausea and vomiting. HISTORY OF PRESENT ILLNESS: This is an 82-year-old male with past medical history of esophageal stri cture; rosacea; coronary artery disease, status post stents x5, also status post pacemaker; BPH; hype rlipidemia; hypertension; presenting with chief complaint of nausea, vomiting x4 per the patient. He stated that he was having some chest discomfort and was sent to our hospital because the patient sta doyle that the discomfort he felt like as if something was stuck in his throat. The patient was then a dmitted and the GI doctor, Dr. Delgado did EGD and after the EGD, the patient was found to have esopha geal stricture that needed dilatation; however, per records and per the patient, because he is on Xar elto, the procedure cannot be done, so the patient was supposed to go home and come back after being off anticoagulation for a couple of days. However, the patient started vomiting and he stated that h is vomitus was dark and he vomited about 4 times. Due to his vomitus, the patient is now being admit doyle to be evaluated. At this point, the patient denies any headaches, nausea, chest pain, palpitatio ns, abdominal pain. REVIEW OF SYSTEMS: Positive for vomitus, otherwise as documented in HPI. All other systems were rev iewed and are negative. PAST MEDICAL HISTORY: Esophageal stricture; rosacea; coronary artery disease, status post stents x5, status post pacemaker; BPH; hyperlipidemia; hypertension; history of atrial fibrillation. PAST SURGICAL HISTORY: Carotid endarterectomy and tonsillectomy. FAMILY HISTORY: Reviewed and noncontributory. SOCIAL HISTORY: The patient drinks alcohol occasionally. The patient denies illicit drug use and th e patient denies smoking history. ALLERGIES: The patient is allergic to SULFAS. CURRENT MEDICATIONS: The patient is on Xarelto, aspirin, Catapres, Valium, Zetia, lisinopril, Multaq , nitro, Crestor, pantoprazole. PHYSICAL EXAMINATION: VITAL SIGNS: Blood pressure 144/75, pulse of 82, O2 sat of 100%, temperature of 98.7. GENERAL: The patient is lying in bed comfortably, is not in acute distress, able to speak in full se ntences. HEENT: Normocephalic, atraumatic. Pupils are equally round and reactive to light. Extraocular move ments are intact. No scleral icterus. No conjunctival pallor. NECK: Supple, no JVDs. Trachea is midline. LUNGS: Clear to auscultation bilaterally. No wheezing, no rales, no rhonchi is appreciated. CARDIOVASCULAR: Positive S1, S2. The patient has systolic murmur that can be appreciated. ABDOMEN: Positive bowel sounds in all quadrants, nontender, nondistended. No masses. No pulsatile masses. No peritoneal signs appreciated. EXTREMITIES: The patient do have 5/5 upper extremity strength with good pulses bilaterally and 5/5 l ower extremity strength with good pulses bilaterally. NEUROLOGIC: Cranial nerves II-XII grossly intact. No neurologic deficits noted. SKIN: Warm, dry, and intact. PSYCHIATRIC: Alert and oriented x3, not in acute distress. EKG: Showed paced rhythm. ED COURSE: In the ED, the patient was given Reglan, normal saline and glucagon. LABORATORY DATA: WBC was 12.5, hemoglobin 13.5, hematocrit is 40.7, platelet of 254. PT 26.0, INR i s 2.48, PTT is 33.6. Sodium 136, potassium 4.2, chloride 102, carbon dioxide of 21, anion gap of 17, BUN is 21, creatinine is 1.73, GFR is 38, glucose is 136. BNP 149.7 IMAGING: Chest x-ray showed no acute cardiopulmonary process. EGD that was done showed the patient has esophageal stricture. ASSESSMENT AND PLAN: This is an 82-year-old male being admitted for: 1. Nausea and vomiting. The patient was evaluated by Dr. Delgado and the patient underwent EGD. Per EGD, the patient has esophageal stricture, which needs to be dilated, but the patient is on Xarelto. Therefore, the patient was encouraged to go home and come back after a couple of days off the antic oagulation; however, because of patient having nausea and vomiting, the patient has been admitted at this time. We will follow up morning labs. We will follow up with GI regarding their recommendation s. We will also get Cardiology on consult since the patient has extensive cardiac history and also t he patient is taking Xarelto and patient states that he actually stopped even his aspirin by himself because he has been having a lot of GI bleed, especially when he vomits. 2. Coronary artery disease, status post stents. At this point, the patient's aspirin is being held due to gastrointestinal bleed and also the fact the patient has to undergo esophageal dilatation. Al so, we will hold patient's Xarelto. 3. Questionable atrial fibrillation. Per the patient's daughter, the patient has a history of atria l fibrillation. At this point, we are holding anticoagulation. 4. Hyperlipidemia. Continue the patient on current medications. 5. Hypertension. We will monitor the patient's blood pressure closely. 6. Deep venous thrombosis and gastrointestinal prophylaxis. We will do sequential compression devic es and we will do Protonix. This case has been dictated by Dr. Frederic Urias on patient, Nadeem Carsondemetrisnicole.
[2018-05-06 05:04] LABS: #Lymphocytes 1.1 thou/uL (1.20-3.40); #Monocytes 0.1 thou/uL (0.11-0.59); #Neutrophils 5.9 thou/uL (1.40-6.50); %Basophils 0.6 % (0.0-1.0); %Lymphocytes 15.4 % (21.0-51.0); %Monocytes 1.9 % (0.0-10.0); Hemoglobin 11.3 g/dL (14.0-18.0); Mean Corpuscular HGB CONC 33.8 g/dL (32.0-36.0); Mean Corpuscular Hemoglobin 30.8 pg (27.0-31.0); Mean Corpuscular Volume 91.2 fL (78.0-98.0); Mean Platelet Volume 7.6 fL (7.4-10.4); Platelet Count 187 thou/uL (130-400); RBC Distribution Width 11.8 % (11.5-14.5); Red Blood Cell (RBC) Count 3.66 mill/uL (4.70-6.10); White Blood Cell (WBC) Count 7.2 thou/uL (4.8-10.8)
[2018-05-06 05:21] LABS: ALT (SGPT) 21 U/L (8-55); AST (SGOT) 25 U/L (5-34); Albumin 3.7 g/dL (3.4-4.8); Alkaline Phosphatase 63 U/L (40-150); Anion Gap 13 mmol/L (10-20); BUN (Urea Nitrogen) 19 mg/dL (8.4-25.7); Bilirubin, Total 0.7 mg/dL (0.2-1.2); Calc. Creatinine Clearance 39 mL/min (70-130); Carbon Dioxide 24 mmol/L (23-31); Chloride 103 mmol/L (98-107); Estimated GFR-MDRD 59; Globulin 2.7 g/dL (2.4-3.5); Glucose 127 mg/dL (83-110); Phosphorus 3.7 mg/dL (2.3-4.7); Potassium 4.6 mmol/L (3.5-5.1); Protein, Total 6.4 g/dL (5.8-8.1); Sodium 135 mmol/L (136-145)
--- NOTE | 2018-05-06 07:57 | CON ---
DATE OF CONSULTATION: 05/05/2018 REASON FOR CONSULTATION: Suspected foreign body obstruction in the esophagus. HISTORY OF PRESENT ILLNESS: Mr. Ho is an 82-year-old gentleman who states he was coming ba from a trip this morning and stopped to eat in [place], had a light breakfast with some eggs and toast and felt that the food got stuck. He threw up several times the way home, his had to taffy puller the car for him to regurgitate saliva and secretions. He ultimately came to the emergency room today at 1600 hours. He was still having chest discomfort, nausea, and vomiting and felt something was stuck in his chest. He was last in this hospital with MA in July. He had a stent placed at that time and a pacemaker placed in August. He remains on Plavix and Xarelto. He had no hematemesi s or melena. Reportedly, his notes that he has been having some issues with dysphagia recently and had meant to get to the office, but he had not done so yet. He has had EGD with dilatation of st rictures in the past. Presently, he feels that the food is still stuck. He denies any overt chest p ain or shortness of breath. Per the nurses note, he has been weak here in the day stay. REVIEW OF SYSTEMS: Negative for dyspnea on exertion, chest pain or diaphoresis. He had some issues with dysphagia in the past and this has been worsening recently. PAST MEDICAL HISTORY: Esophageal stricture, rosacea, previous MA with EF of 60%-65%, previous martinez ry stents placed, he has had 5 and the most recent was in August of this year. 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 He has had a pacemaker in August of this year, he has history of BPH, hyperlipi demia, and hypertension. PAST SURGICAL HISTORY: Carotid endarterectomy, tonsillectomy, and previous endoscopies including col onoscopy in August of this year when he presented with GI bleed. He had a descending colon polyp th at was removed and a poor prep. PRESENT MEDICATIONS: He states he is taking Protonix, although this is not on his medication list. He is not on aspirin any longer. He is on Catapres, Plavix, B12, which he states he is not taking, V alium p.r.n., Zetia, lisinopril, Multaq, Sular, Nitrostat, and Xarelto. ALLERGIES: He is allergic to SULFA. SOCIAL HISTORY: He socially drinks alcohol, does not smoke. PHYSICAL EXAMINATION: VITAL SIGNS: His blood pressure is 144/75, pulse 60, respirations 18 unlabored. GENERAL: He is thin male, in no apparent distress. NECK: No apparent distress. LUNGS: Clear. CARDIOVASCULAR: Heart regular, without clicks or murmurs. ABDOMEN: Soft, nontender, without rebound or guarding. EXTREMITIES: No clubbing, cyanosis or edema. LABORATORY STUDIES: Today, white count 12.5, hemoglobin 13, platelet count 254. INR 2.4. BNP was 1 49. CK was 1. Troponin less than 0.01. BUN and creatinine are 21 and 1.7. Electrolytes are normal . Liver function tests are normal. ASSESSMENT: 1. Suspected bolus obstruction in esophagus. 2. Anticoagulation with elevated INR. RECOMMENDATIONS: Esophagogastroduodenoscopy with removal of foreign body. Risks, benefits, and poss ible complications including perforation, reactions to medication, and bleeding were explained to the patient, his , and granddaughter at the bedside. At this time, I would not proceed with dilatat ion in light of his ongoing anticoagulation, elevated INR on Xarelto. 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
[2018-05-06 12:14] VITALS: TEMP 98
--- NOTE | 2018-05-06 15:40 | PRG ---
DATE OF SERVICE: 05/06/2018 SUBJECTIVE: The patient was seen initially this morning. He had significant vertigo that was resolving, but would occur if he lifted his head or moved his head around. I am seeing him again this afternoon, he reports it is substantially better. Also, of note, he was able to allow the patient some clear liquids today and he felt that helped him feel significantly better also. OBJECTIVE: VITAL SIGNS: Temperature 98.0, pulse 67, respirations 19, O2 sat 98% on room air, BP 151/70. GENERAL APPEARANCE: Age appropriate male in no distress. Awake, alert, oriented, pleasant and cooperative. HEART: No murmurs, gallops or rubs. He does have a 2/6 murmur at the left upper sternal border. No gallops or rubs noted. LUNGS: Clear to auscultation bilaterally. ABDOMEN: Soft, nontender, nondistended, positive bowel sounds, no masses, no organomegaly. EXTREMITIES: Warm and dry. LABORATORY DATA: White count 7.2, hemoglobin 11.3, platelets 187. Sodium 135, potassium 4.6, chloride 103, BUN 19, creatinine 1.18 and glucose 127. IMPRESSION AND PLAN: 1. Esophageal stricture. The patient has a history of esophageal strictures and needs dilatation; however, he is on Plavix and Xarelto. Those are being held. I talked to Dr. Delgado today. We were able to go ahead and let him try some clear liquids. He tolerated those well and had no problems. At this point , I am going to resume some of his oral medications. We will crush the Multaq as it is quite large and has been a problem for the patient before. If the patient can manage clear liquids and taking his medications, he can likely be discharged. Awaiting Cardiology consult at the request of GI in order to see if they have any particular comments on holding his antiplatelet medication and Xarelto. Assuming they are okay with holding them both, patient can likely go home, take clear liquids take his other medications and then follow up as an outpatient on after having been off the Xarelto and Plavix for a couple of days, so that he can have the esophageal dilatation. 2. Nausea and vomiting, resolved. 3. Benign paroxysmal positional vertigo. The patient seemed to be improving from this already this afternoon. It is unclear if this might have been contributing to his nausea and vomiting symptoms. No specific treatment indicated at this time. 4. History of coronary artery disease status post stents. Holding his Xarelto and his Plavix. 5. History of atrial fibrillation, currently sinus rhythm, holding Xarelto. 6. Hypertension, resuming his usual medications. 7. Hyperlipidemia. Holding off on those meds which are not completely essential until after his dilatation. JUDY
[2018-05-06 16:04] VITALS: BP 155/62
[2018-05-06] MEDS ORDERED: Dronedarone HCl 400 MG TAB PO SCH (17:00)
[2018-05-06] MEDS ORDERED: Nisoldipine 8.5 MG TAB PO SCH (21:00)
[2018-05-06] MEDS ORDERED: Metoprolol Tartrate 25 MG TAB PO SCH (21:00)
--- NOTE | 2018-05-06 21:10 | CON ---
DATE OF CONSULT: 05/06/18 HISTORY OF PRESENT ILLNESS: The patient is an 82-year-old gentleman with a history of severe coronary artery disease and atrial f ibrillation who presented with difficulty swallowing. The patient has a long history of coronary art julianne disease. He has previously undergone PTCA and stent placement after suffering a myocardial infar ctions in 2010. He had placement of a stent into the RCA lesion and left circumflex artery. The pat ient also subsequently suffered another myocardial infarction 2016. He underwent a cardiac catheteri zation. He subsequently underwent PTCA and stent placement into the ostial right coronary artery. T he patient needed placement of electronic pacemaker. The patient also has chronic paroxysmal atrial fibrillation and has been treated with Multaq and Xarelto. The patient presented after he had diffic ulty swallowing. The patient's Xarelto and Plavix have been held MEDICAL HISTORY: Significant for, 1. Coronary artery disease. 2. Atrial fibrillation. 3. History of pacemaker placement. 4. Hypertension. 5. Hyperlipidemia. 6. Benign prostatic hypertrophy. PAST SURGICAL HISTORY: He had a carotid endarterectomy, tonsillectomy. ALLERGIES: SULFA. PRESENT MEDICATIONS: Include Multaq 400 b.i.d., metoprolol 75 b.i.d., Sular 8.5 daily, Protonix 40 daily, Plavix 75 daily, Xarelto 20 daily. SOCIAL HISTORY: Nonsmoker. PHYSICAL EXAMINATION: GENERAL: This is a well-developed gentleman in no acute distress. VITAL SIGNS: Blood pressure was 155/62. NECK: No jugular distention, no carotid bruits. LUNGS: Clear to auscultation. HEART: Regular rate and rhythm, normal S1, S2 with a II/ systolic murmur. ABDOMEN: Nondistended. EXTREMITIES: Showed no edema. VASCULAR: Radial pulses are 2+. LABORATORY RESULTS: Sodium was 135, potassium 4.6, chloride 103, bicarb 24, BUN 19, creatinine is 1.13, glucose 127. Tr oponin less than 0.01. White blood cell count 7.2, hemoglobin 11.3, hematocrit 33.4, platelets are 1 87. His EKG reveals him to have an electronic atrial pacemaker with mild voltage criteria for left v entricular hypertrophy. IMPRESSION: 1. Esophageal stricture. 2. History of PTCA and stent placement, status post TN in 07/2017. 3. History of dual chamber electronic pacemaker. 4. History of aortic stenosis. 5. Status post carotid endarterectomy. 6. History of myocardial infarction. This gentleman presents with an esophageal stricture. His Xarelto and Plavix have been held. From a cardiac standpoint, the patient is in a paced rhythm and would agree with withholding Xarelto. The patient does have a history of multiple stents and would prefer the patient to be back on his Plavix as soon as possible. We will follow this patient with you through his hospitalization.
--- NOTE | 2018-05-07 01:37 | PRG ---
DATE OF SERVICE: 05/06/2018. SUBJECTIVE: Mr. Ho actually today was having more problems with vertigo, but this afternoon he has actually been able to get up, walk around without getting dizzy. He was able to tolerate liquids this afternoon. I talked with Dr. Mejia. We are going to see if he can tolerate his medications. If he can, he will be able to go home with followup on for an EGD with dilatation. We will hold his Plavix and his Xarelto until that time. OBJECTIVE: VITAL SIGNS: Temperature is 97.3, blood pressure 155/52. ABDOMEN: Soft, nontender. LUNGS: Clear. LABORATORY DATA: White count 7.2, hemoglobin 13.3, platelet count is 187. Sodium 135, comprehensive metabolic profile is otherwise normal. BNP 149. ASSESSMENT: 1. Dysphagia, likely related to bolus obstruction resolved, there was quite a bit of edema in the distal esophagus. 2. Persistent nausea and vomiting. This is resolved. It is unclear if it is related to the edema in his esophagus from a foreign body obstruction or from a component of vertigo and it may be a little bit above. Presently, he has minimal vertiginous symptoms and has no vomiting. PLAN: We will place him on his home medications. If he can tolerate this fine , he can go home. Again, we will hold the Plavix and Xarelto and plan for EGD with dilatation in 2 more days as out pt. MTDD
--- NOTE | 2018-05-07 11:10 | DIS ---
DATE OF ADMISSION: 05/05/2018 DATE OF DISCHARGE: 05/06/2018 DISCHARGE DIAGNOSES: 1. Nausea, vomiting. 2. Esophageal stricture. 3. Benign paroxysmal positional vertigo. 4. History of coronary artery disease. 5. History of atrial fibrillation. 6. History of pacemaker placement. 7. Hypertension. 8. Hyperlipidemia. 9. BPH. HOSPITAL COURSE: This patient is an 82-year-old male with significant coronary artery disease and hi story of atrial fibrillation who presented with some difficulty swallowing. He had some vomiting sym ptoms and was felt to have a food bolus impaction in the esophagus. He subsequently presented to the hospital here and underwent endoscopy which revealed some inflammation, stricturing in the distal es ophagus. The patient was on Plavix and Xarelto. Therefore, no attempts at dilatation were made. Th e patient was placed in the hospital in order to hold his Xarelto and Plavix in order to obtain the a dequate time to perform the dilatation procedure. Subsequently, the patient developed some paroxysma l positional vertigo which appeared to be self-limited and actually resolved within the same day. He had no further nausea and was allowed to take p.o. liquids, which he tolerated well. Once the patie nt tolerated the clear liquids, we started him back on his medicines other than the Plavix and Xarelt o. He was seen in consultation by Cardiology who agreed with the plan. Given that he was able to to lerate p.o. liquids and could stay hydrated and nourished. It was felt that he could be discharged t o home to follow up as an outpatient in order to get the EGD with dilatation in a couple of days. I discussed the case in detail with GI again to confirm that plan. PHYSICAL EXAMINATION: VITAL SIGNS: On the day of discharge, temperature is 98.0, pulse 64, respirations 18, O2 sat 99% on room air, BP was 155/62. GENERAL APPEARANCE: The patient was awake, alert, oriented, pleasant, cooperative. He had full rang e of motion of the head and neck without any further vertigo symptoms. HEART: Regular rate and rhythm. LUNGS: Clear bilaterally. ABDOMEN: Benign. EXTREMITIES: Warm and dry. DISPOSITION: The patient is discharged to home. His activity is as tolerated. He will remain on a clear liquid diet. DISCHARGE MEDICATIONS: He will be on Multaq 400 mg b.i.d., Protonix 40 mg every day, metoprolol 75 m g b.i.d., Sular 8.5 mg p.o. at bedtime. He will hold his Plavix, B12, Zetia, Feosol, Crestor, CoQ10 and Xarelto until after his dilatation procedure on . Dr. Delgado will see the patient on Sat for endoscopy and he will make all appropriate arrangements with the patient in order to make t hat happen. Patient is encouraged to return to the hospital should he have any problems prior to travis t time.
--- NOTE | 2018-05-10 16:14 | EKG ---
Test Reason : Blood Pressure : / mmHG Vent. Rate : 063 BPM Atrial Rate : 063 BPM P-R Int : 258 ms QRS Dur : 088 ms QT Int : 478 ms P-R-T Axes : -29 -27 -28 degrees QTc Int : 489 ms Atrial-paced rhythm with prolonged AV conduction Minimal voltage criteria for LVH, may be normal variant Prolonged QT No STEMI Abnormal ECG Confirmed by ANUJ RAMIREZ, SINGH ([id number]), deputy editor in chief GIRISH WHITTEN ([id number]) on 05/10/2018 4:13:33 PM Referred By: Confirmed By:SINGH LESLIE MD
== END 2018-05-06 19:45 | disposition home or self-care (01) ==
LOC: ERS 14:04 → T4-A 15:04 → ERS 16:01 → T4-A 20:29
PROVIDERS: ADMIT Internal Medicine; ATTEND Internal Medicine
PROC: 0DJ08ZZ Inspection of Upper Intestinal Tract, Via Natural or Artificial Opening Endoscopic (ICD-10-PCS; principal; 2018-05-05)
DX: K22.2 Esophageal obstruction (principal); I25.10 Atherosclerotic heart disease of native coronary artery without angina pectoris; L71.9 Rosacea, unspecified; N40.0 Benign prostatic hyperplasia without lower urinary tract symptoms; E78.5 Hyperlipidemia, unspecified; I10 Essential (primary) hypertension; I25.2 Old myocardial infarction; H81.10 Benign paroxysmal vertigo, unspecified ear; I48.0 Paroxysmal atrial fibrillation; I48.2 Chronic atrial fibrillation; Z79.01 Long term (current) use of anticoagulants; Z79.82 Long term (current) use of aspirin; Z79.899 Other long term (current) drug therapy; Z88.2 Allergy status to sulfonamides; Z95.5 Presence of coronary angioplasty implant and graft; Z95.0 Presence of cardiac pacemaker; Z98.890 Other specified postprocedural states
CPT/HCPCS: 43235; 71046; 80053 ×2; 80069; 82550; 82553; 83880; 84484; 85025 ×2; 85610; 85730; 93005; 96361 ×3; 96374; 96375 ×2; 99285; G0378; J1610; 36415; A4216; C9113; J1100; J2001; J2405; J2704; J2765; J3010

== ENCOUNTER 2021-06-15 18:46 | Emergency (ER) | payer MEDICARE | END 2021-06-15 21:18 | disposition home or self-care (01) | LOC: ERS 18:46 | DX: M25.571 Pain in right ankle and joints of right foot (principal); R60.0 Localized edema; E78.5 Hyperlipidemia, unspecified; I25.10 Atherosclerotic heart disease of native coronary artery without angina pectoris; I25.2 Old myocardial infarction; Z95.0 Presence of cardiac pacemaker; Z95.5 Presence of coronary angioplasty implant and graft; Z79.899 Other long term (current) drug therapy ==